=== PATIENT | female | born 1965 | race Caucasian/White ===

== ENCOUNTER 2019-07-10 09:48 | Inpatient (IN) | payer OTHER, SELFPAY ==
[2019-07-10] MEDS ORDERED: Norepinephrine 8 MG/0.9% NS 250 ML ONE (09:56)
[2019-07-10 10:09] LABS: Hemoglobin 11.6 g/dL (12.0-16.0); Mean Corpuscular Volume 91.8 fL (78.0-98.0); Red Blood Cell (RBC) Count 3.93 mill/uL (4.20-5.40); White Blood Cell (WBC) Count 15.1 thou/uL (4.8-10.8)
[2019-07-10 10:10] LABS: Mean Corpuscular Hemoglobin 29.4 pg (27.0-31.0); Mean Platelet Volume 9.6 fL (7.4-10.4); Platelet Count 178 thou/uL (130-400); RBC Distribution Width 13.1 % (11.5-14.5)
[2019-07-10 10:22] LABS: INR-International Normal Ratio 1.2; Prothrombin Time 15.3 SEC (12.0-14.7)
[2019-07-10 10:23] LABS: BHCG - Serum Negative (NEGATIVE); Pregs Control Background? CLEAR/WHITE (CLR/WHITE); Pregs Control Bar Appear? YES (CONTROL BAR)
--- NOTE | 2019-07-10 10:24 | RAD ---
EXAM: CHEST ONE VIEW HISTORY: Patient post CPR. Intubated. COMPARISON: None FINDINGS: Endotracheal tube is noted in place with tip overlying the T4 vertebral body and just above the level of the thomas. Nasogastric tube is noted in place which courses into the upper quadrant, tip is not seen. The cardiac silhouette is enlarged. Bilateral perihilar interstitial and alveolar opacities are seen with greater degree of consolidation in the right upper lobe with patchy parenchymal densities left lung base. Findings may be related to asymmetric bilateral pulmonary edema versus infe ctious process and possibly atypical infectious process. No pleural effusion is seen. Mild degenerative changes are seen in the spine. A pacing pad overlies the right upper lateral chest/axill pattie region. IMPRESSION: 1. Increased perihilar interstitial and alveolar opacities much greater in the right upper lobe. As n oted above, these findings may be related to asymmetric pulmonary edema versus infectious process and possibly atypical infectious process. 2. Cardiomegaly. 3. Endotracheal tube and nasogastric tubes in place.
[2019-07-10 10:29] LABS: Analyzer IN Cardio ER; Base Excess (BEa) -16.7 mEq/L (-2.0 to +3.0); CO2 Tension 54.3 mmHg (35.0-45.0); Carboxyhemoglobin (COHb) 0.3 gm% (0.0-3.0); Hemoglobin (Hb) 11.8 g/dL (12.0-16.0); O2 Tension (PaO2) 112.4 mmHg (80.0-100.0); Potassium - ABG Lab 3.43 mmol/L (3.70-5.30)
[2019-07-10] MEDS ORDERED: Fentanyl 100 MCG/2 ML VIAL ONE ×2 (10:32→10:47)
[2019-07-10 10:33] LABS: Puncture Site LRA; pH, Arterial 7.03 (7.35-7.45)
[2019-07-10 10:34] LABS: ALV-art Gradient 532.725 (0-20)
[2019-07-10 10:34] LABS: ALT (SGPT) 45 U/L (8-55); AST (SGOT) 53 U/L (5-34); Albumin 3.4 g/dL (3.5-5.0); Alkaline Phosphatase 127 U/L (40-110); Anion Gap 22 mmol/L (10-20); BUN (Urea Nitrogen) 16 mg/dL (9.8-20.1); Bilirubin, Total 0.2 mg/dL (0.2-1.2); Calc. Creatinine Clearance 0 mL/min (70-130); Calcium 8.3 mg/dL (7.8-10.44); Carbon Dioxide 21 mmol/L (22-29); Chloride 98 mmol/L (98-107); Estimated GFR-MDRD 45; Glucose 496 mg/dL (70-105); Lipase 83 U/L (8-78); Potassium 3.3 mmol/L (3.5-5.1); Protein, Total 6.4 g/dL (6.0-8.3); Sodium 138 mmol/L (136-145)
[2019-07-10 10:38] LABS: Band 3 % (5-11); Eosinophils 1 % (0-10); Lymphocytes 67 % (21-51); MDiff Complete? YES; Monocytes 7 % (0-10); Neutrophil 22 % (42-75); Platelet Morphology Comment Appears Adequate; RBC Morphology Normal
[2019-07-10] MEDS ORDERED: fentaNYL Citrate/PF 2,000 MCG in Sodium Chloride 0.9% 60 ML IV SCH ×2 (10:39→12:48)
[2019-07-10] MEDS ORDERED: Propofol 1,000 MG/100 ML VIAL IV ONE (10:49)
[2019-07-10 11:05] LABS: Bilirubin Negative (Negative); Blood, Urine Moderate (Negative); Glucose, Urine (Dipstick) 500 mg/dL (Negative); Leukocyte Negative (Negative); Nitrite Negative (Negative); Protein, Urine (Dipstick) > or equal to 300 mg/dL (Neg-Trace); Urobilinogen 0.2 mg/dL (Less than 2)
[2019-07-10 11:09] LABS: Clarity Cloudy (Clear)
[2019-07-10] MEDS ORDERED: levETIRAcetam 1000 MG/100 ML PREMIX BAG ONE (11:13)
[2019-07-10 11:15] LABS: Amphetamine Not Detected (NotDetected); Barbiturates Screen Not Detected (NotDetected); Benzodiazepine Screen Not Detected (NotDetected); Cocaine Metabolite Screen Not Detected (NotDetected); Medtox Control Line Valid? VALID (VALID); Medtox Reader # READER 4; Methadone Not Detected (NotDetected); Methamphetamine Not Detected (NotDetected); Opiate Screen Not Detected (NotDetected); Oxycodone Screen Not Detected (NotDetected); Phencyclidine (PCP) Not Detected (NotDetected); THC/Cannabinoid Screen Not Detected (NotDetected); Tricyclic Screen Not Detected (NotDetected)
[2019-07-10 11:17] LABS: Bacteria/HPF None Seen HPF (None Seen); Squamous Epithelial 0-3 HPF (0-3); WBC/HPF 0-3 HPF (0-3)
--- NOTE | 2019-07-10 11:35 | RAD ---
EXAM: Single view of the chest HISTORY: Respiratory failure and cardiopulmonary arrest COMPARISON: 07/10/2019 FINDINGS: Single view of the chest shows an enlarged cardiomediastinal silhouette. A left IJ central venous catheter seen with its tip in the superior vena cava. No pneumothorax is seen. The NG tube and endotracheal tube are unchanged in position. Diffuse hazy opacities are seen throughout the lung s. The bones are unremarkable. IMPRESSION: 1. Appropriate position of lines and tubes 2. Multifocal infiltrates
[2019-07-10] MEDS ORDERED: Ventilator Sedation Protocol 1 EACH FS ONE (11:44)
[2019-07-10] MEDS ORDERED: CCU Electrolyte Replacement 1 EACH FS ONE (11:44)
[2019-07-10] MEDS ORDERED: Ventilator Sedation Protocol 1 EACH FS SCH (12:00)
[2019-07-10] MEDS ORDERED: Rocuronium Bromide 10 MG/ML (10ML VIAL) ONE ×2 (12:38→12:39)
[2019-07-10] MEDS ORDERED: Potassium Chloride 40 MEQ in Sodium Chloride 0.9% 250 ML 250 ML IVPB PRN (12:48)
[2019-07-10] MEDS ORDERED: Potassium Chloride 20 MEQ TAB PO PRN (12:48)
[2019-07-10] MEDS ORDERED: Magnesium 2 GM/50 ML 2 GM in Premix Bag 1 BAG IVPB PRN (12:48)
[2019-07-10] MEDS ORDERED: Fentanyl BOLUS 250 ML IVPB PRN (12:48)
[2019-07-10] MEDS ORDERED: Magnesium Oxide 400 MG TAB PO PRN ×2 (12:48)
[2019-07-10] MEDS ORDERED: Morphine 2 MG/ML SYRINGE SLOW IVP PRN (12:48)
[2019-07-10] MEDS ORDERED: Potassium Phosphate 15 MMOL in Sodium Chloride 0.9% 250 ML 250 ML IV PRN (12:48)
[2019-07-10] MEDS ORDERED: PHOS-NAK 1 PKT PACK PO PRN ×2 (12:48)
[2019-07-10] MEDS ORDERED: Lorazepam 2 MG/ML VIAL SLOW IVP PRN (12:48)
[2019-07-10] MEDS ORDERED: Potassium Chloride 40 MEQ in Premix Bag 1 BAG IVPB PRN (12:48)
[2019-07-10] MEDS ORDERED: Potassium Phosphate 9 MMOL in Sodium Chloride 0.9% 100 ML IVPB PRN (12:48)
[2019-07-10] MEDS ORDERED: Potassium Phosphate 12 MMOL in Sodium Chloride 0.9% 250 ML 250 ML IV PRN (12:48)
[2019-07-10] MEDS ORDERED: Propofol BOLUS 1,000 MG/100 ML VIAL IV PRN (12:48)
[2019-07-10] MEDS ORDERED: CCU ELECTROLYTE REPLACEMENT PROTOCOL FS PRN (12:48)
[2019-07-10] MEDS ORDERED: DISCONTINUE PREVIOUS NARCOTIC PAIN MEDICATIONS AND BENZODIAZEPINES FS SCH (12:48)
--- NOTE | 2019-07-10 13:03 | CT ---
EXAM: CTA of the chest HISTORY: Shortness of breath COMPARISON: None TECHNIQUE: Multiple contiguous axial images were obtained a CTA of the chest with contrast per pulmon pattie embolism protocol. 3-D oblique MIP reformats and direct coronal reformats were performed. FINDINGS: HEART: Normal in size without focal cardiac abnormality. PULMONARY ARTERIES: Evaluation of the segmental and subsegmental vessels is limited secondary to stre ak artifact from the patient's sides touching the CT gantry. No emboli are seen in the central pulmonary arteries. MEDIASTINUM: No hilar or mediastinal lymphadenopathy. LUNGS: Multiple focal areas of consolidation are seen scattered throughout the lungs. This is most pr ominent in the right upper lobe. PLEURAL SPACE: No pleural effusion or pneumothorax. An endotracheal tube is seen in good position above the thomas. An NG tube is seen in the stomach. Th ere is a left IJ central venous catheter with its tip in the superior vena cava. CHEST WALL SOFT TISSUES: Unremarkable VISUALIZED OSSEOUS STRUCTURES: Degenerative changes in the spine VISUALIZED SUBDIAPHRAGMATIC STRUCTURES: Unremarkable IMPRESSION: 1. No evidence of pulmonary thromboembolism 2. Multifocal infiltrates
[2019-07-10] MEDS ORDERED: Iopamidol-370 76% 500 ML 1 ML ONE (13:30)
[2019-07-10] MEDS: Sodium Chloride 0.9% 1,000 ML IV SCH (13:37)
[2019-07-10] MEDS: Piperacillin/Tazobactam 3.375 GM in Sodium Chloride 0.9% 100 ML IVPB SCH ×3 (13:48→23:21)
[2019-07-10 13:51] LABS: Lactic Acid 5.4 mmol/L (0.5-2.2)
--- NOTE | 2019-07-10 13:51 | CT ---
CT BRAIN NONCONTRAST: DATE: 07/10/2019. TIME: 12:41 PM. HISTORY: A 54-year-old female with altered mental status, status post cardiac arrest. COMPARISON: None. FINDINGS: There is diffuse effacement of sulci globally. There is diffuse, global loss of carreon-white junction. These findings are consistent with diffuse cerebral cytotoxic edema. Ventricles are not dilated. In fact, they are slightly small. No acute intraaxial or extraaxial hemorrhage, mass effect, midline s hift, or extraaxial fluid collection. Nasogastric tube and endotracheal tube visualized partially. IMPRESSION: Evidence for global cerebral ischemic-hypoxic injury. JN Brandon POS: CET
[2019-07-10 14:14] VITALS: BMI 40.7
[2019-07-10] MEDS: HUMULIN R 100 UNITS in Sodium Chloride 0.9% 100 ML IVPB SCH ×3 (14:42→23:22)
[2019-07-10 14:50] LABS: Troponin I 1.315 ng/mL (< 0.028)
[2019-07-10] MEDS: Norepinephrine 8 MG/0.9% NS 250 ML IVPB SCH ×2 (15:52→23:23)
[2019-07-10] MEDS: Propofol 1,000 MG/100 ML VIAL IV PRN (17:38)
--- NOTE | 2019-07-10 17:42 | CON ---
DATE OF CONSULTATION: 07/10/2019 CONSULTING PHYSICIAN: Dr. Colbert from the emergency room. REASON FOR CONSULTATION: The patient is status post arrest. HISTORY OF PRESENT ILLNESS: At the current time, no family is available, so I have no history other than what is turned over to me from speaking with the nursing staff and the emergency room physician. The patient is 54-year-old, apparently she had an unwitnessed cardiac arrest. She was down for about 5 minutes before EMS arrived. I am told she was given a total of 40 minutes of CPR with several episodes, where she had spontaneous return of circulation. At the current time, she is on norepinephrine drip. She is having myoclonic jerking. PAST MEDICAL HISTORY: From her medications, it would appear that she is a type 2 diabetic, has hypertension, and has hyperlipidemia. PAST SURGICAL HISTORY: At the current time is unknown. ALLERGIES: UNKNOWN. SOCIAL HISTORY: Not known. MEDICATIONS: 1. Metformin 1000 mg b.i.d. 2. Glyburide 5 mg daily. 3. Lisinopril/hydrochlorothiazide 20/25 one daily. 4. Atorvastatin 20 mg daily. REVIEW OF SYSTEMS: Cannot be obtained secondary to the patient being unconscious. PHYSICAL EXAMINATION: VITAL SIGNS: Temperature is 95 degrees Fahrenheit, pulse 110, blood pressure 102/56 on a Levophed drip, and O2 saturation running about 90%. GENERAL: She is a short obese female, who is intubated and on a propofol drip. She has a left IJ line that has been put in by the ER staff. She has a right tibial intraosseous line that I presume was put in by paramedics. She is intubated with an endotracheal tube. HEENT: She is intubated. NECK: No adenopathy or JVD. CARDIAC: S1 and S2. Regular with a 2/6 systolic murmur. LUNGS: Coarse breath sounds bilaterally. ABDOMEN: Soft, obese, nontender, and nondistended. EXTREMITIES: No clubbing, cyanosis, or edema. NEUROLOGICAL: She has chronic myoclonic jerking. LABORATORY DATA: Urinalysis shows proteinuria and glucosuria. White blood cell count is 15.1, hematocrit 36.1, and platelet count 178 with 22% neutrophils, 3% bands, and 67% lymphocytes. INR is 1.2 and PTT 35.0. A pH is 7.03, pCO2 of 54, PO2 of 112 on SIMV rate 20, tidal volume 500, PEEP 5, pressure support 10, and FiO2 of 100%. Sodium 138, potassium 3.3, chloride 98, CO2 of 21, BUN 16, creatinine 1.2, glucose 496, lactate level is 11.7, AST 53, ALT 45, and lipase 83. Serum test is negative. Chest x-ray shows vascular congestion, ET tube in good position, has cardiomegaly. EKG, I have not seen yet, but I will look at that earliest possibility. ASSESSMENT: 1. Status post cardiac arrest, etiology uncertain. Of note, the patient has profound lactic acidosis, also has grossly elevated blood sugars indicating poor diabetic control. 2. Acute respiratory failure requiring mechanical ventilation. This problem is secondary to the underlying cardiac arrest. 3. Severe metabolic acidosis, which looks to be mostly lactic in origin. 4. Chronic kidney disease. 5. Lymphocytosis on smear. PLAN: 1. Supportive care with mechanical ventilation, therapeutic hypothermia. 2. Empiric antibiotics given probability of aspiration pneumonia given the appearance of her x-ray. 3. Check echocardiogram to rule out systolic dysfunction. 4. I would advise Cardiology consultation. 5. Agree with plan to get head CT and CT pulmonary angiogram. Given the presence of myoclonic jerking, this patient's prognosis for recovery is dismal. The above encompassed 70 minutes of critical care time. Job ID: [id number]
[2019-07-10 18:08] LABS: Troponin I 2.522 ng/mL (< 0.028)
[2019-07-10 19:59] LABS: Hemoglobin 12.8 g/dL (12.0-16.0); Mean Corpuscular Hemoglobin 29.5 pg (27.0-31.0); Mean Corpuscular Volume 89.4 fL (78.0-98.0); Mean Platelet Volume 9.5 fL (7.4-10.4); Platelet Count 269 thou/uL (130-400); RBC Distribution Width 13.1 % (11.5-14.5); Red Blood Cell (RBC) Count 4.32 mill/uL (4.20-5.40)
[2019-07-10 20:03] LABS: INR-International Normal Ratio 1.2; PTT 28.1 SEC (22.9-36.1); Prothrombin Time 15.6 SEC (12.0-14.7)
[2019-07-10 20:17] LABS: Band 20 % (5-11); Lymphocytes 3 % (21-51); MDiff Complete? YES; Metamyelocyte 1 % (0-0); Monocytes 2 % (0-10); Neutrophil 74 % (42-75); Platelet Morphology Comment Appears Adequate; RBC Morphology Normal
[2019-07-10 20:18] LABS: Anion Gap 20 mmol/L (10-20); BUN (Urea Nitrogen) 24 mg/dL (9.8-20.1); Calc. Creatinine Clearance 66 mL/min (70-130); Calcium 8.4 mg/dL (7.8-10.44); Carbon Dioxide 16 mmol/L (22-29); Chloride 106 mmol/L (98-107); Estimated GFR-MDRD 31; Glucose 409 mg/dL (70-105); Magnesium 1.4 mg/dL (1.6-2.6); Sodium 139 mmol/L (136-145)
[2019-07-10 20:20] LABS: Phosphorus 1.9 mg/dL (2.3-4.7); Potassium 2.7 mmol/L (3.5-5.1)
[2019-07-10 20:47] LABS: CKMB 48.1 ng/mL (0-6.6)
--- NOTE | 2019-07-10 21:27 | CON ---
DATE OF CONSULTATION: CRITICAL CARE NOTE TIME: 30 minutes. HISTORY OF PRESENT ILLNESS: The patient is an unfortunate 54-year-old woman, who presented after suffering a cardiac arrest. The patient has apparently a history of congestive heart failure. Her family states she was in her usual state of health when this morning she was found to be unresponsive. CPR was subsequently attempted. The patient was emergently intubated and underwent electrical cardioversion. She was transferred and at this time is intubated and unresponsive. PAST MEDICAL HISTORY: 1. Congestive heart failure. 2. Diabetes mellitus. 3. Hypertension. PAST SURGICAL HISTORY: SOCIAL HISTORY: Nonsmoker. FAMILY HISTORY: Positive family history of heart disease. ALLERGIES: NO KNOWN DRUG ALLERGIES. PHYSICAL EXAMINATION: GENERAL: Obtunded woman with a blood pressure of 135/86. NECK: No jugular venous distention. LUNGS: Clear to auscultation. HEART: Regular rate and rhythm. Normal S1 and S2. ABDOMEN: Markedly distended. EXTREMITIES: Showed trace edema. LABORATORY RESULTS: Sodium was 138, potassium 3.3, chloride 98, bicarbonate 21 , BUN 16, creatinine 1.2. Followup troponin level was 1.3. Her white blood cell count was 15.1, hemoglobin 11.6, hematocrit 36.1, and platelets 179. EKG revealed sinus tachycardia with a first-degree AV block. Nonspecific interventricular conduction delay, ST abnormality suggestive of lateral ischemia. IMPRESSION: 1. Status post cardiac arrest. 2. Diabetes mellitus. 3. Hypertension. 4. Possible anoxic brain injury. 5. Obesity. This patient has suffered a cardiac arrest. She may have been down for prolonged period of time. An echocardiogram will be obtained. Her blood pressure is stabilized. We will follow this patient with you through her hospitalization. Critical care note time is 30 minutes. Job ID: [id number] MTDD
[2019-07-10] MEDS ORDERED: Potassium Chloride 20 MEQ in Premix Bag 1 BAG IVPB SCH (21:30)
[2019-07-10] MEDS ORDERED: Magnesium 2 GM/50 ML 2 GM in Premix Bag 1 BAG IVPB SCH (21:30)
[2019-07-10] MEDS ORDERED: Potassium Phosphate 12 MMOL in Sodium Chloride 0.9% 100 ML IVPB SCH (22:00)
[2019-07-11] MEDS ORDERED: Insulin Glargine 8 UNITS in Pre-Filled Syringe 1 EACH SC SCH ×2 (01:00→21:00)
[2019-07-11 01:46] LABS: INR-International Normal Ratio 1.2; Prothrombin Time 15.4 SEC (12.0-14.7)
[2019-07-11 01:54] LABS: Band 10 % (5-11); Hemoglobin 12.8 g/dL (12.0-16.0); Lymphocytes 7 % (21-51); MDiff Complete? YES; Mean Corpuscular HGB CONC 33.6 g/dL (32.0-36.0); Mean Corpuscular Hemoglobin 29.8 pg (27.0-31.0); Mean Corpuscular Volume 88.9 fL (78.0-98.0); Mean Platelet Volume 9.3 fL (7.4-10.4); Monocytes 4 % (0-10); Neutrophil 79 % (42-75); Platelet Count 233 thou/uL (130-400); Platelet Morphology Comment Appears Adequate; RBC Distribution Width 13.1 % (11.5-14.5); RBC Morphology Normal; Red Blood Cell (RBC) Count 4.28 mill/uL (4.20-5.40); White Blood Cell (WBC) Count 24.2 thou/uL (4.8-10.8)
[2019-07-11 02:37] LABS: Anion Gap 20 mmol/L (10-20); BUN (Urea Nitrogen) 25 mg/dL (9.8-20.1); Calc. Creatinine Clearance 67 mL/min (70-130); Calcium 8.2 mg/dL (7.8-10.44); Carbon Dioxide 14 mmol/L (22-29); Chloride 108 mmol/L (98-107); Critical Call Chem Troponin I RESULT DECREASING; Estimated GFR-MDRD 32; Glucose 315 mg/dL (70-105); Magnesium 1.9 mg/dL (1.6-2.6); Phosphorus 2.5 mg/dL (2.3-4.7); Potassium 3.1 mmol/L (3.5-5.1); Sodium 139 mmol/L (136-145)
[2019-07-11 03:00] LABS: CKMB 59.5 ng/mL (0-6.6)
[2019-07-11] MEDS: HUMULIN R 100 UNITS in Sodium Chloride 0.9% 100 ML IVPB SCH ×5 (03:01→19:30)
[2019-07-11] MEDS: Propofol 1,000 MG/100 ML VIAL IV PRN (03:01)
[2019-07-11] MEDS: Sodium Chloride 0.9% 1,000 ML IV SCH ×2 (03:05→10:29)
[2019-07-11] MEDS: Piperacillin/Tazobactam 3.375 GM in Sodium Chloride 0.9% 100 ML IVPB SCH ×3 (05:15→18:07)
[2019-07-11 07:13] LABS: Actual Bicarbonate (HCO3a) 14.4 mEq/L (22-28); Base Excess (BEa) -9.8 mEq/L (-2.0 to +3.0); CO2 Tension 27.5 mmHg (35.0-45.0); Calcium, Ionized 1.12 mmol/L (1.12-1.30); Carboxyhemoglobin (COHb) 0.5 gm% (0.0-3.0); Hemoglobin (Hb) 12.7 g/dL (12.0-16.0); O2 Tension (PaO2) 155.4 mmHg (80.0-100.0); Potassium - ABG Lab 3.14 mmol/L (3.70-5.30); pH, Arterial 7.34 (7.35-7.45)
[2019-07-11 07:16] LABS: ALV-art Gradient 380.625 (0-20); Puncture Site RR
[2019-07-11 07:27] LABS: Hemoglobin 12.5 g/dL (12.0-16.0); Mean Corpuscular HGB CONC 32.8 g/dL (32.0-36.0); Mean Corpuscular Hemoglobin 29.4 pg (27.0-31.0); Mean Corpuscular Volume 89.8 fL (78.0-98.0); Mean Platelet Volume 8.9 fL (7.4-10.4); Platelet Count 221 thou/uL (130-400); RBC Distribution Width 13.4 % (11.5-14.5); Red Blood Cell (RBC) Count 4.26 mill/uL (4.20-5.40); White Blood Cell (WBC) Count 20.5 thou/uL (4.8-10.8)
[2019-07-11 07:28] LABS: INR-International Normal Ratio 1.2; PTT 28.6 SEC (22.9-36.1); Prothrombin Time 15.5 SEC (12.0-14.7)
--- NOTE | 2019-07-11 07:29 | HP ---
CHIEF COMPLAINT: Cardiac arrest. HISTORY OF PRESENT ILLNESS: Ms. Nieto is a 54-year-old female with past medical history of hypertension, diabetes, heart failure, was found to be unresponsive at home. 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 She worked last night and this morning, she was in communication with her daughters around 6:30, but later her found her gasping for air just before 9:00 and he tried to wake up point and she was unresponsive. He called the EMS. EMS found the patient unresponsive, gasping for air, and a few minutes later, she was in cardiac arrest and CPR was started by the EMS. The patient was also shocked 3 times en route to the hospital. She was started on lidocaine drip. She received two rounds of epi by the EMS. In the ER, the patient was continued on CPR and shocked as well, so she had a total of 40 minutes of CPR and she had less spontaneous return to circulation here few times. Later, she was intubated and put on ventilator. She was on norepinephrine drip. The patient was also noticed to have myoclonic jerking. The patient is admitted to ICU for further management. The patient did not complain of any chest pain or shortness of breath prior to this event. According to the family, the patient takes her medications regularly. The patient also had elevated lactic acid and elevated troponin as well. PAST MEDICAL HISTORY: 1. Diabetes mellitus. 2. Hypertension. 3. Hyperlipidemia. 4. History of CHF. PAST SURGICAL HISTORY: Unknown. CURRENT MEDICATIONS: The patient is on: 1. Metformin 1000 b.i.d. 2. Glimepiride 8 mg daily. 3. Atorvastatin 20 mg daily. 4. Lisinopril hydrochlorothiazide one tablet daily, . ALLERGIES: NKDA. FAMILY HISTORY: Nothing contributory. SOCIAL HISTORY: The patient lives with her family. 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 Used to smoke many years ago, quit smoking 20 years ago. No history of alcohol or drug abuse. REVIEW OF SYSTEMS: Unable to obtain because of the patient's current condition. PHYSICAL EXAMINATION: GENERAL: The patient is unresponsive. VITAL SIGNS: Temperature hypothermic, temp max 95, pulse 85, blood pressure 120/ 60. HEENT: Head is normocephalic, atraumatic. Pupils not reacting to light, but not dilated. LUNGS: Bilateral air entry present. No rales, no rhonchi. HEART: S1 and S2, regular. ABDOMEN: Soft. No distention. No tenderness. No organomegaly. Bowel sounds present. CENTRAL NERVOUS SYSTEM: The patient is unresponsive. DIAGNOSTIC STUDIES: LABORATORY RESULTS: CBC shows WBC 15, hemoglobin 11, hematocrit 36, platelets 178. Prothrombin time 15, INR 1.2. ABG showed pH 7.03, pCO2 54, pCO2 112, saturation 95%, panel; sodium 138, potassium 3.3 chloride 98, CO2 21, creatinine 1.24, glucose 496. Lactic acid 11.7. Urine toxicology negative. Troponin I less than 0.010. Chest x-ray shows multiple infiltrates. CT angio chest, no evidence of pulmonary embolism. CT of the brain suggestive of anoxic brain injury. Initial EKG showed sinus tachycardia, T-wave inversions in aVL, but the repeat EKG done just now revealed ST elevation in lead 1 and aVL, possibly lateral ischemia. ASSESSMENT: 1. Status post cardiac arrest. 2. Acute respiratory failure secondary to #1. 3. Acute myocardial infarction. 4. Hypotension. 5. Hypothermia. 6. Metabolic encephalopathy. 7. Unresponsive. 8. History of diabetes. 9. Hyperlipidemia. PLAN: 1. CCU monitoring. 2. Ventilator support. 3. Electrolyte protocol. 4. Sedation protocol. 5. Troponin I q.6 hours x2. 6. Zosyn 3.375 g IV piggyback q.6 hours. 7. Tube feeding. 8. Echocardiogram. Job ID: [id number] MTDD
[2019-07-11 07:48] LABS: Anion Gap 17 mmol/L (10-20); BUN (Urea Nitrogen) 27 mg/dL (9.8-20.1); Calc. Creatinine Clearance 68 mL/min (70-130); Calcium 8.2 mg/dL (7.8-10.44); Carbon Dioxide 16 mmol/L (22-29); Chloride 108 mmol/L (98-107); Estimated GFR-MDRD 32; Glucose 285 mg/dL (70-105); Magnesium 1.7 mg/dL (1.6-2.6); Phosphorus 2.8 mg/dL (2.3-4.7); Potassium 3.2 mmol/L (3.5-5.1); Sodium 138 mmol/L (136-145)
[2019-07-11 07:55] LABS: Critical Call Chem Troponin I RESULT DECREASING
--- NOTE | 2019-07-11 08:04 | RAD ---
Portable frontal chest radiograph: 07/11/2019 COMPARISON: 07/10/2019 HISTORY: Pneumonia FINDINGS: Supine imaging is provided, limiting assessment for pleural fluid and pneumothorax. There i s an endotracheal tube in place, terminating approximately 2 cm proximal to the thomas. Stable nasogastric tube and left-sided vascular catheter. Stable pulmonary vascular congestion with perihila r interstitial and alveolar opacity. Stable prominence of the cardiac silhouette. Hazy airspace disease again noted in the left base. Aeration within the right upper lobe has improved. IMPRESSION: Lines and tubes as detailed above. Improved aeration in the right upper lobe. Pulmonary v ascular congestion with perihilar and left basilar interstitial/alveolar opacity may be on the basis of edema or infectious pneumonitis.
[2019-07-11 08:15] LABS: CKMB 57.8 ng/mL (0-6.6); Critical Call CKMB RESULT DECREASING
[2019-07-11 08:20] LABS: Band 11 % (5-11); Eosinophils 1 % (0-10); Lymphocytes 12 % (21-51); MDiff Complete? YES; Monocytes 2 % (0-10); Neutrophil 74 % (42-75); Platelet Morphology Comment Appears Adequate; RBC Morphology Normal
--- NOTE | 2019-07-11 08:57 | PRG ---
DATE OF SERVICE: 07/11/2019 35 minutes of critical care time. SUBJECTIVE: The patient had an episode of bradycardia early this morning followed by tachycardia. During that episode her pupils became 8 mm bilaterally, unreactive. PHYSICAL EXAMINATION: VITAL SIGNS: Currently temperature 91.4, pulse 122, blood pressure 171/118. 24-hour intake 2878, output 960. HEENT: Pupils are 7 mm, unreactive to light. Sclerae anicteric. Oropharynx, ET tube in place. NECK: No adenopathy or JVD. CHEST: Clear to auscultation. CARDIAC: S1-S2 regular. ABDOMEN: Soft. EXTREMITIES: No edema. NEUROLOGICAL: She does not withdraw to pain. Her pupils are fixed and dilated to light. She has no spontaneous respirations on the ventilator. LABORATORY DATA: Sodium 138, potassium 3.2, chloride 108, CO2 of 16, BUN 27, creatinine 1.6, and glucose 285. PH 7.34, pCO2 27, PO2 155 on SIMV rate 24, tidal volume 500, PEEP 5, pressure support 10, FiO2 80%. White blood cell count 20.5, hematocrit 38.2, and platelet count 221. ASSESSMENT: 1. Status post prolonged cardiopulmonary arrest. 2. Probable clinical brain , although the patient has not been rewarming yet, so that cannot be said with absolution. PLAN: 1. Begin rewarming. 2. Cerebral brain flow scan once she is warm. 3. Hold sedation. 4. I spoke with family yesterday regarding poor prognosis. 5. Placed ventilator on assist-control mode. Job ID: [id number]
[2019-07-11] MEDS ORDERED: FLU VACC QS2019-20(6MOS UP)/PF 60 MCG/0.5 ML SYRINGE IM ONE (09:00)
[2019-07-11] MEDS ORDERED: Pantoprazole 40 MG VIAL IVP SCH (09:00)
[2019-07-11 13:08] LABS: INR-International Normal Ratio 1.2; PTT 30.8 SEC (22.9-36.1); Prothrombin Time 15.6 SEC (12.0-14.7)
[2019-07-11 13:17] LABS: Hemoglobin 11.8 g/dL (12.0-16.0); Mean Corpuscular HGB CONC 33.6 g/dL (32.0-36.0); Mean Corpuscular Hemoglobin 29.6 pg (27.0-31.0); Mean Corpuscular Volume 88.3 fL (78.0-98.0); Platelet Count 216 thou/uL (130-400); RBC Distribution Width 13.1 % (11.5-14.5); Red Blood Cell (RBC) Count 3.97 mill/uL (4.20-5.40); White Blood Cell (WBC) Count 19.1 thou/uL (4.8-10.8)
[2019-07-11 13:25] LABS: Anion Gap 15 mmol/L (10-20); BUN (Urea Nitrogen) 25 mg/dL (9.8-20.1); Calc. Creatinine Clearance 70 mL/min (70-130); Calcium 8.4 mg/dL (7.8-10.44); Carbon Dioxide 19 mmol/L (22-29); Chloride 110 mmol/L (98-107); Estimated GFR-MDRD 33; Glucose 199 mg/dL (70-105); Potassium 3.5 mmol/L (3.5-5.1); Sodium 140 mmol/L (136-145)
[2019-07-11 13:41] LABS: Band 9 % (5-11); Lymphocytes 6 % (21-51); MDiff Complete? YES; Monocytes 2 % (0-10); Neutrophil 83 % (42-75); Platelet Morphology Comment Appears Adequate; Polychromasia SLIGHT = 2-3 cells (100X) (0-2/hpf)
[2019-07-11 13:42] LABS: Critical Call Chem Troponin I RESULT DECREASING
[2019-07-11 13:43] LABS: Magnesium 1.7 mg/dL (1.6-2.6); Phosphorus 1.6 mg/dL (2.3-4.7)
[2019-07-11 14:02] LABS: CKMB 47.5 ng/mL (0-6.6); Critical Call CKMB RESULT DECREASING
[2019-07-11 14:13] VITALS: TEMP 36.7
[2019-07-11] MEDS ORDERED: Potassium Phosphate 40 MMOL in Sodium Chloride 0.9% 500 ML IVPB SCH (15:00)
[2019-07-11] MEDS: Norepinephrine 8 MG/0.9% NS 250 ML IVPB SCH (15:02)
--- NOTE | 2019-07-11 15:12 | PDOC.PALCO ---
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 He found her down at home "gasping" for air and non responsive, he called EMS. EMS initiated CPR and transported to the hospital. CPR was estimated to last 40 minutes. Patient had been intubated, and placed on a ventilator and admitted to CCU for medical management. Family reports the patient had not reported any chest pain or discomfort, and is complaint with medications related to chronic illnesses. - Pertinent PMH DM, HTN, HDL, CHF - Social History Smoking Status: Former smoker Smoking: quit greater than 1 year (quit smoking greater than 20 years ago) Alcohol Use: none Drug Use History: none Living Situation: - Medications MAR Reviewed: Yes - Allergies Allergies/Adverse Reactions: Allergies Allergy/AdvReac Type Severity Reaction Status Date / Time No Known Allergies Allergy Unverified 07/10/19 10:36 - Subjective Intubated, non responsive, sedation stopped. - ROS Non Response: due to endotracheal tube, due to mental status - Objective Vital Signs: Vital Signs - Most Recent Temp Pulse Resp BP Pulse Ox 36.7 F L 106 H 24 H 100/68 100 07/11/19 14:13 07/11/19 14:35 07/11/19 13:59 07/11/19 12:56 07/11/19 08:00 Palliative Performance Scale: 10 - Physical Exam Constitutional: encephalitic, ill appearing HEENT: moist MMs Deviation from normal: Pupils fixed Respiratory: no wheezing Deviation from normal: Intubated Cardiovascular: no significant murmur, RRR Gastrointestinal: non-tender, positive bowel sounds Genitourinary: garcia catheter Musculoskeletal: no cyanosis, edema present Deviation from normal: no purposeful movment or response to gentle stimuli Skin: no lesions, no rash Deviation from normal: non responsive - Problem List (1) Palliative care encounter Code(s): Z51.5 - ENCOUNTER FOR PALLIATIVE CARE Current Visit: Yes Status: Acute (2) History of cardiac arrest Code(s): Z86.74 - PERSONAL HISTORY OF SUDDEN CARDIAC ARREST Current Visit: Yes Status: Acute (3) Respiratory failure requiring intubation Code(s): J96.90 - RESPIRATORY FAILURE, UNSP, UNSP W HYPOXIA OR HYPERCAPNIA Current Visit: Yes Status: Acute (4) Metabolic encephalopathy Code(s): G93.41 - METABOLIC ENCEPHALOPATHY Current Visit: Yes Status: Acute (5) Chronic kidney disease Code(s): N18.9 - CHRONIC KIDNEY DISEASE, UNSPECIFIED Current Visit: Yes Status: Acute - Plan/Recommendations Plan: Palliative Care initiated contact with family. Awaiting patient to be warmed and have cerebral flow done. Family aware of grave nature of patient and that prognosis is poor in relation to meaningful recovery. Continue with family support and discussion in relation to poor outcomes related to acute event requiring CPR. Spiritual care also seeing patient and involved in support of family. Communicated with Father Henok. Please also refer to Palliative Care RN notes in note section of chart. *Will further support patient as they are faced with complex decisions [50] minutes spent on this encounter with >50% of the time in counseling and coordination of care. Thank you for this very appropriate consult.
--- NOTE | 2019-07-11 16:09 | NM ---
NUCLEAR MEDICINE BRAIN EXAMINATION/CEREBRAL BLOOD FLOW STUDY HISTORY: Clinical brain COMPARISON: None TECHNIQUE: A nuclear medicine cerebral blood flow study was performed after administration of 31.8mCi of technetium 99m HMPAO. Angiographic and delayed phase images were performed. FINDINGS: There is lack of intracranial flow on the angiographic and delayed phase images. IMPRESSION: Findings are consistent with brain
[2019-07-11 16:53] LABS: Anion Gap 14 mmol/L (10-20); BUN (Urea Nitrogen) 24 mg/dL (9.8-20.1); Calc. Creatinine Clearance 68 mL/min (70-130); Calcium 8.7 mg/dL (7.8-10.44); Carbon Dioxide 21 mmol/L (22-29); Chloride 112 mmol/L (98-107); Estimated GFR-MDRD 32; Glucose 130 mg/dL (70-105); Potassium 3.9 mmol/L (3.5-5.1); Sodium 143 mmol/L (136-145)
[2019-07-11 18:49] VITALS: BP 120/78
--- NOTE | 2019-07-12 12:34 | DIS ---
DATE OF ADMISSION: 07/10/2019 DATE OF DISCHARGE: 07/11/2019 SUMMARY DATE OF : July 11, 2019. ADMITTING DIAGNOSES: 1. Cardiac arrest. 2. Acute respiratory failure. 3. Hypotension. 4. Hypothermia. 5. The patient was unresponsive. 6. Possible anoxic brain injury. 7. History of diabetes mellitus. FINAL DIAGNOSES: 1. Status post cardiac arrest. 2. Anoxic brain injury. 3. Acute respiratory failure. 4. Hypotension. 5. Unresponsive. 6. Severe decreased LV function with ejection fraction of 10% to 15% on echo done this admission. BRIEF SUMMARY OF HOSPITAL COURSE: Ms. Nieto was a 54-year-old female admitted because of cardiac arrest. The patient was found to be unresponsive at home. EMS was called, was started on CPR, then had direct cardioversion and the patient's blood pressure and pulse came back, but the patient remained unresponsive. She was intubated and was put on ventilator. Initially, she was hypotensive. She was started on Levophed infusion and supportive care. The patient was seen by Pulmonary in ICU, seen by Dr. Ruff. He felt she had cardiac arrest due to probably prolonged time she was down, possible anoxic brain injury as well. The patient was continued on treatment. Her blood pressure went up in the morning and her Levophed was discontinued, but the CT scan of the brain showed possible anoxic injury. Brain flow nuclear medicine study was done and it confirmed brain . Her condition was discussed with the family. They agreed for organ donation as well. An echocardiogram was done prior to that, it showed decreased LV function with ejection fraction of 10% to 15%. The patient was seen by Dr. Woo for Cardiology. He felt the patient had cardiac arrest with prolonged down time, possible anoxic brain injury, so the patient was pronounced on the 11 of July. Family was at bedside. Job ID: [id number]
--- NOTE | 2019-07-14 14:24 | EKG ---
Test Reason : Blood Pressure : / mmHG Vent. Rate : 112 BPM Atrial Rate : 112 BPM P-R Int : 000 ms QRS Dur : 124 ms QT Int : 346 ms P-R-T Axes : 015 -61 132 degrees QTc Int : 472 ms Sinus tachycardia Left axis deviation Non-specific intra-ventricular conduction delay Abnormal ECG Confirmed by HENNY JALLOH DO ([id number]), marketing editor PADILLA ROTH ([id number]) on 07/14/2019 2:24:01 PM Referred By: Confirmed By:HENNY JALLOH DO
--- NOTE | 2019-07-16 19:00 | PQF ---
[employer] Nonprofit Manager Crystal Reports Dorie VincentAviSANDRA VENKAT R MD [id number] CLINICAL DOCUMENTATION CLARIFICATION FORM: POST DISCHARGE Addendum to original discharge summary date: ____ Late entry note date: __ DATE: 07/16/18 ATTN: Emmanuel Vann Please exercise your independent, professional judgment in responding to the clarification form. Clinical indicators are provided on the bottom of this form for your review Please check appropriate box(es): [ ] Sepsis due to: (Pna, UTI, gangrenous gall bladder, etc.) [ ] SIRS due to non-infectious process (please specify etiology) [ ] with organ dysfunction [ ] without organ dysfunction [ ] Severe sepsis with acute organ dysfunction of: [ ] Localized infection without sepsis [ y ] Other diagnosis Please specify heart failure with ventricular fibrillation [ ] Unable to determine In addition, please specify: Present on Admission (POA): [ y Yes [ ] No [ ] Unable to determine For continuity of documentation, please document condition throughout progress notes and discharge summary. Thank You. CLINICAL INDICATORS - SIGNS / SYMPTOMS / LABS Chest X ray 07/10- Increased perihilar interstitial and alveolar opacities much greater in the right upper lobe Chest X ray 07/10- Multifocal infiltrates Consult 07/10 dr. Ruff pg.2- patient has profound lactic acidosis, Consult pg.2 07/10- Sever metabolic acidosis which mostly lactic in origin Consult 07/10 pg.2- Empiric antibiotics given probability of aspiration pneumonia DS pg.1- "Anoxic brain injury" RISK FACTORS Cardiac arrest- Consult 07/10 pg.1 Acute respiratory failure- Consult pg.2 DM- Consult pg.1 CHF- Consult pg.1 Hypertension- Consult pg.1 Metabolic encephalopathy- H and P pg.2 Acute myocardial infarction- H and P pg.2 TREATMENTS: Pulmonary Consult- Dr. Ruff 07/10 Chest X ray 07/10 40 mins of CPR- Consult Dr. Ruff 07/10 Mechanical Ventilation- consult pg.2 Empiric antibiotics- Consult pg.2 On norepinephrine drip- H and P pg.1 CCU monitoring- H and P pg.3 IV Fluids- MAR (This form is maintained as a part of the permanent medical record) 2015 [employer] All Rights Reserved [email or web address] [not provided] MTDD
--- NOTE | 2019-07-16 19:03 | PQF ---
SANDRA CHAMBERS VENKAT R MD [id number] CLINICAL DOCUMENTATION CLARIFICATION FORM: POST DISCHARGE Addendum to original discharge summary date: ____ Late entry note date: __ DATE: 07/16/18 ATTN: Emmanuel Vann Please exercise your independent, professional judgment in responding to the clarification form. Clinical indicators are provided on the bottom of this form for your review Please check appropriate box(s): [ ] Aspiration Pneumonia [ ] No Pneumonia [ ] Pneumonia of unknown etiology [ ] Other diagnosis please specify [ y ] Unable to determine In addition, please specify: Present on Admission (POA): [ y ] Yes [ ] No [ ] Unable to determine For continuity of documentation, please document condition throughout progress notes and discharge summary. Thank You. CLINICAL INDICATORS - SIGNS / SYMPTOMS / LABS Chest X ray 07/10- Increased perihilar interstitial and alveolar opacities much greater in the right upper lobe Chest X ray 07/10- Multifocal infiltrates Consult 07/10 dr. Ruff pg.2- patient has profound lactic acidosis, Consult pg.2 07/10- Sever metabolic acidosis which mostly lactic in origin Consult 07/10 pg.2- Empiric antibiotics given probability of aspiration pneumonia RISK FACTORS Cardiac arrest- Consult 07/10 pg.1 Acute respiratory failure- Consult pg.2 DM- Consult pg.1 CHF- Consult pg.1 Hypertension- Consult pg.1 Metabolic encephalopathy- H and P pg.2 Acute myocardial infarction- H and P pg.2 TREATMENTS: Pulmonary Consult- Dr. Ruff 07/10 Chest X ray 07/10 40 mins of CPR- Consult Dr. Ruff 07/10 Mechanical Ventilation- consult pg.2 Empiric antibiotics- Consult pg.2 On norepinephrine drip- H and P pg.1 CCU monitoring- H and P pg.3 (This form is maintained as a part of the permanent medical record) 2014 [employer] All Rights Reserved [email or web address] Data [not provided] MTDD
--- NOTE | 2019-07-16 19:12 | PQF ---
[employer] Certified Nurse Crystal Reports [employer] SANDRA La JENNIFER VANN MD [id number] CLINICAL DOCUMENTATION CLARIFICATION FORM: POST DISCHARGE Addendum to original discharge summary date: ____ Late entry note date: __ DATE: 07/16/18 ATTN:Jennifer Vann Please exercise your independent, professional judgment in responding to the clarification form. Clinical indicators are provided on the bottom of this form for your review Can you please further clarify the etiology of cardiac arrest? Please check appropriate box(s): [ ] Acute hypoxic respiratory failure [ y ] Anoxic brain injury [ ] Sepsis [ ] Other diagnosis please specify [ ] Unable to determine In addition, please specify: Present on Admission (POA): [ y ] Yes [ ] No [ ] Unable to determine For continuity of documentation, please document condition throughout progress notes and discharge summary. Thank You. CLINICAL INDICATORS - SIGNS / SYMPTOMS / LABS DS pg.1- "the patient found to be unresponsive at home" DS pg.1- "initially she was hypotensive. She was started on Levophed infusion" DS pg.1- He felt she had cardiac arrest due to probably prolonged time she was down, possible anoxic brain injury as well Chest X ray 07/10- Increased perihilar interstitial and alveolar opacities much greater in the right upper lobe Chest X ray 07/10- Multifocal infiltrates Consult 07/10 dr. Ruff pg.2- patient has profound lactic acidosis, Consult pg.2 07/10- Sever metabolic acidosis which mostly lactic in origin Consult 07/10 pg.2- Empiric antibiotics given probability of aspiration pneumonia RISK FACTORS Acute respiratory failure- Consult pg.2 DM- Consult pg.1 CHF- Consult pg.1 Hypertension- Consult pg.1 Metabolic encephalopathy- H and P pg.2 Acute myocardial infarction- H and P pg.2 TREATMENTS: Pulmonary Consult- Dr. Ruff 07/10 Chest X ray 07/10 40 mins of CPR- Consult Dr. Ruff 07/10 Mechanical Ventilation- Consult pg.2 Empiric antibiotics- Consult pg.2 On norepinephrine drip- H and P pg.1 CCU monitoring- H and P pg.3 IV fluids- MAR (This form is maintained as a part of the permanent medical record) 2014 [employer] All Rights Reserved Jad [email or web address] [not provided] MTDD
--- NOTE | 2019-07-17 09:35 | EKG ---
Test Reason : STAT Blood Pressure : / mmHG Vent. Rate : 096 BPM Atrial Rate : 096 BPM P-R Int : 220 ms QRS Dur : 112 ms QT Int : 384 ms P-R-T Axes : 071 -55 085 degrees QTc Int : 485 ms Sinus rhythm with 1st degree A-V block Left axis deviation Incomplete left bundle branch block Prolonged QT Abnormal ECG When compared with ECG of 28-JAN-2007 00:09, MI interval has increased Incomplete left bundle branch block is now Present Confirmed by SIDNEY CHING (2) on 07/17/2019 9:35:15 AM Referred By: JAHAIRA Confirmed By:SIDNEY CHING
--- NOTE | 2019-07-17 09:36 | EKG ---
Test Reason : EKG CHANGES Blood Pressure : / mmHG Vent. Rate : 085 BPM Atrial Rate : 085 BPM P-R Int : 162 ms QRS Dur : 176 ms QT Int : 500 ms P-R-T Axes : 056 -72 046 degrees QTc Int : 595 ms Normal sinus rhythm Left axis deviation Non-specific intra-ventricular conduction block Lateral infarct , age undetermined Inferior infarct , age undetermined Abnormal ECG When compared with ECG of 10-JUL-2019 15:23, (Unconfirmed) NV interval has decreased Non-specific intra-ventricular conduction block has replaced Incomplete left bundle branch block Lateral infarct is now Present Confirmed by SIDNEY CHING (2) on 07/17/2019 9:35:42 AM Referred By: JAHAIRA Confirmed By:SIDNEY CHING
--- NOTE | 2019-07-17 09:38 | EKG ---
Test Reason : STAT Blood Pressure : / mmHG Vent. Rate : 060 BPM Atrial Rate : 060 BPM P-R Int : 220 ms QRS Dur : 124 ms QT Int : 674 ms P-R-T Axes : 059 -39 100 degrees QTc Int : 674 ms Sinus rhythm with 1st degree A-V block Left axis deviation Non-specific intra-ventricular conduction delay Abnormal ECG When compared with ECG of 10-JUL-2019 16:42, (Unconfirmed) NE interval has increased Questionable change in QRS duration Criteria for Lateral infarct are no longer Present Criteria for Inferior infarct are no longer Present Confirmed by SIDNEY CHING (2) on 07/17/2019 9:38:31 AM Referred By: JESUS Confirmed By:SIDNEY CHING
--- NOTE | 2019-07-17 09:41 | EKG ---
Test Reason : Blood Pressure : / mmHG Vent. Rate : 131 BPM Atrial Rate : 068 BPM P-R Int : 000 ms QRS Dur : 124 ms QT Int : 382 ms P-R-T Axes : 000 -43 070 degrees QTc Int : 564 ms Wide QRS tachycardia Left axis deviation Non-specific intra-ventricular conduction delay Abnormal ECG When compared with ECG of 11-JUL-2019 03:24, (Unconfirmed) Wide QRS tachycardia has replaced Sinus rhythm Vent. rate has increased BY 71 BPM Confirmed by SIDNEY CHING (2) on 07/17/2019 9:40:55 AM Referred By: JAHAIRA Confirmed By:SIDNEY CHING
--- NOTE | 2019-07-20 19:37 | PQF ---
S[employer] Log Handler Crystal Reports Winform Viewer SANDRA CHAMBERS VENKAT R MD [id number] CLINICAL DOCUMENTATION CLARIFICATION FORM: POST DISCHARGE Addendum to original discharge summary date: ____ Late entry note date: __ DATE: 07/20/19 ATTN:Emmanuel Vann Please exercise your independent, professional judgment in responding to the clarification form. Clinical indicators are provided on the bottom of this form for your review Can you please further clarify the type and acuity of CHF? Please check appropriate box(s): HEART FAILURE: A. TYPE: [ y ] Systolic / HFrEF [ ] Diastolic / HFpEF [ ] Combined Systolic / Diastolic B. ACUITY [ ] Acute [ ] Acute on Chronic [ ] Chronic [ ] Other diagnosis [ ] Unable to determine In addition, please specify: Present on Admission (POA): [ y ] Yes [ ] No [ ] Unable to determine For continuity of documentation, please document condition throughout progress notes and discharge summary. Thank You. CLINICAL INDICATORS - SIGNS / SYMPTOMS / LABS H and P pg.1- Cardiac arrest H and P pg.1- History of CHF H and P pg.2- acute myocardial infarction DS pg.1- severe decreased LV function with ejection fraction of 10-15% on echo Consult (Dr. Baldwin)- "Check ECG to rule out systolic dysfunction, advise cardiology consult" RISKS: DM- H and P pg.1 Hypertension- H and P pg.1 hyperlipidemia- H and P pg.1 acute respiratory failure- H and P pg.2 Metabolic encephalopathy- H and P pg.2 TREATMENTS: Echocardiogram 07/10 Chest X ray 07/10 Cardiology Consult 07/10 Intubated and underwent electrical cardioversion- Consult Dr. Woo pg.1 Oxygen supplementation (This form is maintained as a part of the permanent medical record) 2014 [employer]. All Rights Reserved Jad IRVIN
--- NOTE | 2019-07-20 19:42 | PQF ---
[employer] Lens Generator Crystal Reports Winform Viewer SANDRA CHAMBERS VENKAT R MD [id number] CLINICAL DOCUMENTATION CLARIFICATION FORM: POST DISCHARGE Addendum to original discharge summary date: ____ Late entry note date: __ DATE: 07/20/19 ATTN: Emmanuel Vann Please exercise your independent, professional judgment in responding to the clarification form. Clinical indicators are provided on the bottom of this form for your review Can you please further clarify the stage of CKD based on the clinical indicators below? Please check appropriate box(s): [ y ] Acute on Chronic Renal Failure please specify Stage of CKD 3 (see below) [ ] CKD without ARF/MISSY please specify Stage of CKD [ ] ESRD [ ] Other diagnosis [ ] Unable to determine In addition, please specify: Present on Admission (POA): [y ] Yes [ ] No [ ] Unable to determine National Kidney Foundation Guidelines for CKD Staging Stage I Kidney damage with normal or increased GFRGFR > 90 Stage IIKidney damage with mildly decreased GFRGFR 60-89 Stage III Kidney damage with moderately decreased GFRGFR 30-59 Stage IVKidney damage with severely decreased GFRGFR 16-29 Stage VKidney failureGFR<15 ESRDEnd Stage Renal Disease On dialysis Acute Renal Failure/Acute Kidney Failure defined as: Increases in SCr by (>) 0.3 mg/dl within 48 hours OR- Increases in SCr by (>) 1.5 times baseline, known or presumed to have occurred within the prior 7 days OR- Urine volume < 0.5 ml/kg/hour for 6 hours (KDIGO supplement 2012 for RIFLE/CRISTAL criteria) For continuity of documentation, please document condition throughout progress notes and discharge summary. Thank You. CLINICAL INDICATORS - SIGNS / SYMPTOMS / LABS Consult 05/10 Dr. Ruff pg.1- Chronic kidney disease H and P pg.1- Cardiac arrest H and P pg.1- History of CHF H and P pg.2- acute myocardial infarction Laboratory: BUN 16, 24H,25H,27H,25H Laboratory: Creatinine 1.24H, 1.70H, 1/68H, 1.66H Laboratory: GFR 45, 31, 32, 32, 33, 32 RISK FACTORS DM- H and P pg.1 Hypertension- H and P pg.1 hyperlipidemia- H and P pg.1 acute respiratory failure- H and P pg.2 Metabolic encephalopathy- H and P pg.2 Former smoker- - Palliative consult TREATMENTS: IV fluids- MAR BUN and Creatinine monitoring- MAR Palliative Consult- Dr. Graff Correction of electrolytes / acidosis (This form is maintained as a part of the permanent medical record) 2014 [employer]. All Rights Reserved [email or web address] [email or web address]
== END 2019-07-11 16:30 | disposition expired | DRG 91 ==
LOC: ERS 09:48 → CCU 12:54
PROVIDERS: ADMIT Internal Medicine; ATTEND Emergency Medicine
PROC: 5A1935Z Respiratory Ventilation, Less than 24 Consecutive Hours (ICD-10-PCS; principal; 2019-07-10)
PROC: 02HV33Z Insertion of Infusion Device into Superior Vena Cava, Percutaneous Approach (ICD-10-PCS; 2019-07-10)
PROC: 0BH17EZ Insertion of Endotracheal Airway into Trachea, Via Natural or Artificial Opening (ICD-10-PCS; 2019-07-10)
PROC: 3E033XZ Introduction of Vasopressor into Peripheral Vein, Percutaneous Approach (ICD-10-PCS; 2019-07-10)
PROC: 5A12012 Performance of Cardiac Output, Single, Manual (ICD-10-PCS; 2019-07-10)
PROC: 5A2204Z Restoration of Cardiac Rhythm, Single (ICD-10-PCS; 2019-07-10)
DX: G93.1 Anoxic brain damage, not elsewhere classified (principal); J96.00 Acute respiratory failure, unspecified whether with hypoxia or hypercapnia; I21.9 Acute myocardial infarction, unspecified; G93.41 Metabolic encephalopathy; R40.2312 Coma scale, best motor response, none, at arrival to emergency department; R40.2112 Coma scale, eyes open, never, at arrival to emergency department; R40.2212 Coma scale, best verbal response, none, at arrival to emergency department; E87.2 Acidosis; I13.0 Hypertensive heart and chronic kidney disease with heart failure and stage 1 through stage 4 chronic kidney disease, or unspecified chronic kidney disease; Z68.41 Body mass index [BMI] 40.0-44.9, adult; N17.9 Acute kidney failure, unspecified; I50.22 Chronic systolic (congestive) heart failure; Z51.5 Encounter for palliative care; I46.2 Cardiac arrest due to underlying cardiac condition; E78.5 Hyperlipidemia, unspecified; E11.22 Type 2 diabetes mellitus with diabetic chronic kidney disease; D72.820 Lymphocytosis (symptomatic); I49.01 Ventricular fibrillation; E66.9 Obesity, unspecified; Z87.891 Personal history of nicotine dependence; Z79.84 Long term (current) use of oral hypoglycemic drugs; Z79.899 Other long term (current) drug therapy; I44.0 Atrioventricular block, first degree; E11.65 Type 2 diabetes mellitus with hyperglycemia; N18.3 Chronic kidney disease, stage 3 (moderate)
CPT/HCPCS: 31500; 36415; 36416; 36556; 51702; 70450; 71045; 71275; 78610; 80053; 80306; 81003; 81015; 82010; 82550; 82553; 82805; 83605; 83690; 83735; 84100; 84484; 84703; 85025; 85610; 85730; 87040; 87086; 92950; 93005; 93010; 93306; 93451; 94002; 94003; 96365; 96366; 96367; 96368; 96375; 96376; A9521; C9113; J1815; J1953; J1956; J2543; J2704; J3010; J3475; J3480; J3490; J7050; Q9967

== ENCOUNTER 2019-07-11 20:04 | Day surgery (SDC) | payer OTHER ==
[2019-07-11] MEDS ORDERED: Sodium Chloride 0.9% 1,000 ML IV SCH (21:45)
[2019-07-11] MEDS ORDERED: Labetalol HCl 100 MG/20 ML VIAL SLOW IVP SCH (21:45)
[2019-07-11] MEDS ORDERED: Naloxone HCl 2 mg/2 ml Syringe IV SCH (21:45)
[2019-07-11] MEDS ORDERED: Mannitol 12.5 GM/50 ML IV SCH (21:45)
[2019-07-11] MEDS ORDERED: Albuterol Sulfate 2.5 mg/3 ml Neb NEB PRN (21:45)
[2019-07-11] MEDS ORDERED: SODIUM CHLORIDE 0.9% IVPB SCH (22:00)
[2019-07-11] MEDS ORDERED: METHYLPREDNISOLONE SOD SUCC IVPB SCH (22:00)
[2019-07-11 22:02] LABS: Actual Bicarbonate (HCO3a) 20.5 mEq/L (22-28); Base Excess (BEa) -1.6 mEq/L (-2.0 to +3.0); CO2 Tension 27.2 mmHg (35.0-45.0); Calcium, Ionized 1.08 mmol/L (1.12-1.30); Carboxyhemoglobin (COHb) 1.1 gm% (0.0-3.0); Hemoglobin (Hb) 12.3 g/dL (12.0-16.0); O2 Tension (PaO2) 127.1 mmHg (80.0-100.0)
[2019-07-11 22:08] LABS: Puncture Site LINE
--- NOTE | 2019-07-11 22:08 | RAD ---
Chest one view HISTORY: Chest pain. COMPARISON: 07/11/2019. FINDINGS: Cardiac silhouette is magnified and enlarged. Pulmonary vasculature remains engorged with m ild bilateral perihilar infiltrates similar in appearance to the prior study. Mediastinum is midline. Lines and tubes appear unchanged in position. No evidence of pneumothorax. IMPRESSION: Stable radiographic appearance of the chest.
[2019-07-11 22:20] LABS: Band 14 % (5-11); Hemoglobin 12.1 g/dL (12.0-16.0); Lymphocytes 7 % (21-51); MDiff Complete? YES; Mean Corpuscular HGB CONC 33.4 g/dL (32.0-36.0); Mean Corpuscular Hemoglobin 29.2 pg (27.0-31.0); Mean Corpuscular Volume 87.6 fL (78.0-98.0); Mean Platelet Volume 9.3 fL (7.4-10.4); Monocytes 4 % (0-10); Neutrophil 75 % (42-75); Platelet Count 222 thou/uL (130-400); Platelet Morphology Comment Appears Adequate; RBC Distribution Width 13.4 % (11.5-14.5); Red Blood Cell (RBC) Count 4.15 mill/uL (4.20-5.40); White Blood Cell (WBC) Count 24.2 thou/uL (4.8-10.8)
[2019-07-11 22:24] LABS: Hemoglobin A1c 8.5 % (4.0-6.0); INR-International Normal Ratio 1.2; Prothrombin Time 15.6 SEC (12.0-14.7)
[2019-07-11 22:25] LABS: PTT 28.4 SEC (22.9-36.1)
[2019-07-11 22:27] LABS: Bilirubin Negative (Negative); Blood, Urine 2+ (Negative); Clarity Turbid (Clear); Glucose, Urine (Dipstick) Normal (Negative); Leukocyte Negative Leu/uL (Negative); Nitrite Negative (Negative); Protein, Urine (Dipstick) 20 mg/dL (Neg-Trace); Urobilinogen Normal mg/dL (Less than 2)
[2019-07-11] MEDS: Albuterol Sulfate 2.5 mg/3 ml Neb NEB SCH (22:33)
[2019-07-11 22:34] LABS: Lactic Acid 1.7 mmol/L (0.5-2.2)
[2019-07-11 22:41] LABS: ALT (SGPT) 61 U/L (8-55); AST (SGOT) 73 U/L (5-34); Albumin 3.3 g/dL (3.5-5.0); Alkaline Phosphatase 86 U/L (40-110); Anion Gap 17 mmol/L (10-20); BUN (Urea Nitrogen) 24 mg/dL (9.8-20.1); Bilirubin, Total 0.5 mg/dL (0.2-1.2); Calc. Creatinine Clearance 0 mL/min (70-130); Calcium 8.4 mg/dL (7.8-10.44); Carbon Dioxide 19 mmol/L (22-29); Chloride 113 mmol/L (98-107); Estimated GFR-MDRD 30; Gamma GT (GGT) 124 U/L (9-36); Globulin 3.2 g/dL (2.4-3.5); Glucose 166 mg/dL (70-105); Lipase 17 U/L (8-78); Magnesium 1.7 mg/dL (1.6-2.6); Potassium 4.9 mmol/L (3.5-5.1); Protein, Total 6.5 g/dL (6.0-8.3); Sodium 144 mmol/L (136-145)
[2019-07-11] MEDS: Levothyroxine Sodium 400 MCG in Sodium Chloride 0.9% 100 ML IVPB SCH (22:54)
[2019-07-11] MEDS: Phytonadione 10 MG in Sodium Chloride 0.9% 50 ML IVPB SCH (23:06)
[2019-07-11 23:09] LABS: CKMB 22.1 ng/mL (0-6.6)
[2019-07-11 23:19] LABS: Actual Bicarbonate (HCO3a) 20.3 mEq/L (22-28); Base Excess (BEa) -3.9 mEq/L (-2.0 to +3.0); CO2 Tension 34.1 mmHg (35.0-45.0); Calcium, Ionized 1.05 mmol/L (1.12-1.30); Carboxyhemoglobin (COHb) 0.3 gm% (0.0-3.0); Hemoglobin (Hb) 12.5 g/dL (12.0-16.0); O2 Tension (PaO2) 99.9 mmHg (80.0-100.0); Potassium - ABG Lab 5.45 mmol/L (3.70-5.30); pH, Arterial 7.39 (7.35-7.45)
[2019-07-11 23:23] VITALS: BMI 44.7
[2019-07-11 23:23] LABS: ALV-art Gradient 213.975 (0-20); Puncture Site LINE
[2019-07-11] MEDS: Piperacillin/Tazobactam 3.375 GM in Sodium Chloride 0.9% 100 ML IVPB SCH (23:59)
[2019-07-12 00:06] LABS: Base Excess (BEa) -5.4 mEq/L (-2.0 to +3.0); CO2 Tension 33.6 mmHg (35.0-45.0); Calcium, Ionized 1.05 mmol/L (1.12-1.30); Carboxyhemoglobin (COHb) 0.8 gm% (0.0-3.0); Hemoglobin (Hb) 12.3 g/dL (12.0-16.0); Potassium - ABG Lab 5.98 mmol/L (3.70-5.30); pH, Arterial 7.37 (7.35-7.45)
[2019-07-12 00:09] LABS: Puncture Site LINE
[2019-07-12] MEDS: Albuterol Sulfate 2.5 mg/3 ml Neb NEB SCH ×6 (02:50→22:14)
[2019-07-12] MEDS: Norepinephrine 8 MG/0.9% NS 250 ML IVPB SCH (03:29)
[2019-07-12] MEDS: Levothyroxine Sodium 400 MCG in Sodium Chloride 0.9% 100 ML IVPB SCH (04:12)
[2019-07-12] MEDS: Phytonadione 10 MG in Sodium Chloride 0.9% 50 ML IVPB SCH (04:13)
[2019-07-12 04:20] LABS: INR-International Normal Ratio 1.3
[2019-07-12 04:21] LABS: PTT 26.7 SEC (22.9-36.1)
[2019-07-12 04:30] LABS: Hemoglobin 11.7 g/dL (12.0-16.0); Lactic Acid 2.8 mmol/L (0.5-2.2); Lymphocytes 3 % (21-51); MDiff Complete? YES; Mean Corpuscular HGB CONC 32.1 g/dL (32.0-36.0); Mean Corpuscular Hemoglobin 28.1 pg (27.0-31.0); Mean Corpuscular Volume 87.6 fL (78.0-98.0); Mean Platelet Volume 9.3 fL (7.4-10.4); Monocytes 2 % (0-10); Neutrophil 95 % (42-75); Platelet Count 223 thou/uL (130-400); Platelet Morphology Comment Appears Adequate; RBC Distribution Width 13.4 % (11.5-14.5); Red Blood Cell (RBC) Count 4.14 mill/uL (4.20-5.40); White Blood Cell (WBC) Count 21.3 thou/uL (4.8-10.8)
[2019-07-12 04:49] LABS: ALT (SGPT) 59 U/L (8-55); AST (SGOT) 61 U/L (5-34); Albumin 3.4 g/dL (3.5-5.0); Alkaline Phosphatase 90 U/L (40-110); Anion Gap 17 mmol/L (10-20); BUN (Urea Nitrogen) 26 mg/dL (9.8-20.1); Bilirubin, Direct 0.3 mg/dL (0.1-0.3); Bilirubin, Total 0.5 mg/dL (0.2-1.2); Calc. Creatinine Clearance 56 mL/min (70-130); Calcium 8.2 mg/dL (7.8-10.44); Carbon Dioxide 19 mmol/L (22-29); Chloride 116 mmol/L (98-107); Estimated GFR-MDRD 26; Globulin 3.3 g/dL (2.4-3.5); Glucose 230 mg/dL (70-105); Lipase 16 U/L (8-78); Magnesium 1.7 mg/dL (1.6-2.6); Phosphorus 6.2 mg/dL (2.3-4.7); Potassium 4.3 mmol/L (3.5-5.1); Protein, Total 6.7 g/dL (6.0-8.3); Sodium 148 mmol/L (136-145)
[2019-07-12] MEDS: Piperacillin/Tazobactam 3.375 GM in Sodium Chloride 0.9% 100 ML IVPB SCH ×4 (05:15→23:33)
[2019-07-12] MEDS: HUMULIN R 100 UNITS in Sodium Chloride 0.9% 100 ML IVPB SCH ×2 (05:20→21:15)
[2019-07-12] MEDS ORDERED: Magnesium Sulfate 4 GM in Sodium Chloride 0.9% 250 ML 250 ML IVPB SCH (05:45)
[2019-07-12] MEDS: Sodium Chloride 0.45% 1,000 ML IV SCH (05:51)
[2019-07-12 06:43] LABS: Base Excess (BEa) -4.6 mEq/L (-2.0 to +3.0); CO2 Tension 35.2 mmHg (35.0-45.0); Calcium, Ionized 1.13 mmol/L (1.12-1.30); Carboxyhemoglobin (COHb) 0.2 gm% (0.0-3.0); Hemoglobin (Hb) 11.3 g/dL (12.0-16.0); O2 Tension (PaO2) 288.8 mmHg (80.0-100.0); Potassium - ABG Lab 4.01 mmol/L (3.70-5.30); pH, Arterial 7.37 (7.35-7.45)
[2019-07-12 06:44] LABS: Puncture Site ALINE
--- NOTE | 2019-07-12 07:55 | RAD ---
EXAM: Single view of the chest HISTORY: Brain . Patient with respiratory failure. COMPARISON: 07/11/2019 FINDINGS: Single view of the chest shows an enlarged but stable cardiomediastinal silhouette. The li derrell and tubes are unchanged in position. There is no evidence of consolidation, mass, or pleural effusion. Degenerative changes are seen in the spine. IMPRESSION: No evidence of acute cardiopulmonary disease
--- NOTE | 2019-07-12 07:59 | CT ---
PRELIMINARY REPORT/[facility]/EMERGENCY AFTER HOURS PROCEDURE: CT chest abdomen and pelvis without contrast Comparison: None Indication: STA patient. Organ donor Findings: Confluent consolidation in both lower lungs with little volume loss. This is most likely pn eumonia. Cardiomegaly. No pericardial effusion. Normal endotracheal tube. The mediastinum is otherwise normal. Normally positioned. Esophageal gastric tube. Contrast retention in the renal osiris x on the right and left. Normal gallbladder. No biliary ductal dilatation. Macro soft tissue indeterminate nodule of the right adrenal gland measuring 2.4 cm. Small amount of fluid surrounding t he right kidney. Small amount of free fluid in the pelvis. No bowel obstruction, free air or suggestion of diverticulitis. The urinary bladder is collapsed around a Dinero catheter. Impression: Probable pneumonia in both lung bases that may be aspiration pneumonia. Cardiomegaly. Indeterminate n odular density in the right adrenal gland with fluid around the right kidney. This could be a pre-existing indeterminate adrenal nodule. Malignancy is unlikely but not excluded. This could also b e a small adrenal hematoma. Fluid around the right kidney and adrenal gland could be small volume hemorrhage related to injury. No focal laceration identified. Retained contrast in the renal cortex c ould be from recent previous contrast study. Small amount of contrast in the bladder. Correlate clinically for renal failure. Small volume free fluid in the pelvis could be hemoperitoneum. This is indeterminate. ELECTRONICALLY SIGNED BY: Osman Castillo MD Jul 12, 2019 2:00:11 AM [facility] FINAL REPORT CT CHEST, ABDOMEN AND PELVIS WITHOUT IV CONTRAST: I agree with the preliminary report given by Dr. Osman Castillo of [facility]. Contrast in the kidneys is likely from the CT pulmonary angiogram performed on 07/10/2019. Transcribed Date/Time: 07/12/2019 8:24 AM
[2019-07-12 09:57] LABS: Bilirubin Negative (Negative); Blood, Urine Trace (Negative); Clarity Clear (Clear); Glucose, Urine (Dipstick) Normal (Negative); Leukocyte Negative Leu/uL (Negative); Nitrite Negative (Negative); Protein, Urine (Dipstick) Negative (Neg-Trace); Urobilinogen Normal mg/dL (Less than 2)
[2019-07-12 09:59] LABS: INR-International Normal Ratio 1.3; PTT 29.6 SEC (22.9-36.1); Prothrombin Time 16.1 SEC (12.0-14.7)
[2019-07-12 10:04] LABS: Mean Corpuscular HGB CONC 32.2 g/dL (32.0-36.0); Mean Corpuscular Hemoglobin 28.5 pg (27.0-31.0); Mean Corpuscular Volume 88.5 fL (78.0-98.0); Mean Platelet Volume 9.7 fL (7.4-10.4); Platelet Count 202 thou/uL (130-400); RBC Distribution Width 13.7 % (11.5-14.5); Red Blood Cell (RBC) Count 3.84 mill/uL (4.20-5.40); White Blood Cell (WBC) Count 19.4 thou/uL (4.8-10.8)
[2019-07-12 10:18] LABS: ALT (SGPT) 51 U/L (8-55); AST (SGOT) 50 U/L (5-34); Albumin 3.2 g/dL (3.5-5.0); Alkaline Phosphatase 82 U/L (40-110); Anion Gap 14 mmol/L (10-20); BUN (Urea Nitrogen) 25 mg/dL (9.8-20.1); Bilirubin, Direct 0.2 mg/dL (0.1-0.3); Bilirubin, Total 0.4 mg/dL (0.2-1.2); Calc. Creatinine Clearance 57 mL/min (70-130); Calcium 8.2 mg/dL (7.8-10.44); Carbon Dioxide 19 mmol/L (22-29); Chloride 121 mmol/L (98-107); Estimated GFR-MDRD 26; Globulin 3.1 g/dL (2.4-3.5); Glucose 162 mg/dL (70-105); Lipase 14 U/L (8-78); Magnesium 2.6 mg/dL (1.6-2.6); Phosphorus 5.3 mg/dL (2.3-4.7); Protein, Total 6.3 g/dL (6.0-8.3); Sodium 150 mmol/L (136-145)
--- NOTE | 2019-07-12 10:44 | RAD ---
Exam: Chest one view HISTORY:Radiograph. Donor. Comparison: 07/12/2019 FINDINGS: Cardiac silhouette:Stable cardia megaly. Lines and tubes: Stable endotracheal tube, nasogastric tube and left internal jugular central venous catheter. Aorta: Unremarkable Pulmonary vessels: Normal Costophrenic angles: Clear LUNGS: Patchy interstitial opacities, unchanged. Pneumothorax: None Osseous abnormalities: None IMPRESSION: No acute cardiopulmonary process. No significant interval change.
[2019-07-12 10:45] LABS: Band 4 % (5-11); Lymphocytes 4 % (21-51); MDiff Complete? YES; Monocytes 2 % (0-10); Neutrophil 90 % (42-75); Platelet Morphology Comment Appears Adequate; RBC Morphology Normal
[2019-07-12] MEDS ORDERED: Potassium Chloride 20 MEQ in Premix Bag 1 BAG IVPB SCH (11:00)
[2019-07-12 12:56] LABS: Actual Bicarbonate (HCO3a) 20.4 mEq/L (22-28); Base Excess (BEa) -4.1 mEq/L (-2.0 to +3.0); CO2 Tension 35.2 mmHg (35.0-45.0); Calcium, Ionized 1.13 mmol/L (1.12-1.30); Hemoglobin (Hb) 10.7 g/dL (12.0-16.0); O2 Tension (PaO2) 302.9 mmHg (80.0-100.0); Potassium - ABG Lab 3.72 mmol/L (3.70-5.30); pH, Arterial 7.38 (7.35-7.45)
[2019-07-12 12:58] LABS: Puncture Site ALINE
[2019-07-12 15:31] LABS: #Lymphocytes 1.1 thou/uL (1.20-3.40); #Monocytes 0.5 thou/uL (0.11-0.59); #Neutrophils 17.5 thou/uL (1.40-6.50); %Basophils 0.1 % (0.0-1.0); %Lymphocytes 5.7 % (21.0-51.0); %Monocytes 2.5 % (0.0-10.0); %Neutrophils 91.7 % (42.0-75.0); Hemoglobin 10.7 g/dL (12.0-16.0); Mean Corpuscular HGB CONC 32.7 g/dL (32.0-36.0); Mean Corpuscular Hemoglobin 28.9 pg (27.0-31.0); Mean Corpuscular Volume 88.5 fL (78.0-98.0); Mean Platelet Volume 9.4 fL (7.4-10.4); Platelet Count 185 thou/uL (130-400); RBC Distribution Width 13.7 % (11.5-14.5); Red Blood Cell (RBC) Count 3.69 mill/uL (4.20-5.40); White Blood Cell (WBC) Count 19.1 thou/uL (4.8-10.8)
[2019-07-12 15:51] LABS: INR-International Normal Ratio 1.3; Prothrombin Time 16.2 SEC (12.0-14.7)
[2019-07-12 15:52] LABS: PTT 28.8 SEC (22.9-36.1)
[2019-07-12 15:56] LABS: ALT (SGPT) 46 U/L (8-55); AST (SGOT) 42 U/L (5-34); Albumin 3.1 g/dL (3.5-5.0); Alkaline Phosphatase 77 U/L (40-110); Anion Gap 14 mmol/L (10-20); BUN (Urea Nitrogen) 25 mg/dL (9.8-20.1); Bilirubin, Direct 0.2 mg/dL (0.1-0.3); Bilirubin, Total 0.4 mg/dL (0.2-1.2); Calc. Creatinine Clearance 57 mL/min (70-130); Calcium 8.3 mg/dL (7.8-10.44); Carbon Dioxide 19 mmol/L (22-29); Chloride 122 mmol/L (98-107); Estimated GFR-MDRD 27; Globulin 3.2 g/dL (2.4-3.5); Glucose 128 mg/dL (70-105); Lipase 10 U/L (8-78); Magnesium 2.6 mg/dL (1.6-2.6); Phosphorus 4.3 mg/dL (2.3-4.7); Potassium 3.5 mmol/L (3.5-5.1); Protein, Total 6.3 g/dL (6.0-8.3); Sodium 151 mmol/L (136-145)
--- NOTE | 2019-07-12 16:09 | RAD ---
EXAM: Single view of the chest HISTORY: Patient with respiratory failure and brain COMPARISON: 07/12/2019 9:39 AM FINDINGS: Single view of the chest shows an enlarged but stable cardiomediastinal silhouette. The li derrell and tubes are unchanged in position. There is no evidence of consolidation, mass, or pleural effusion. The bones are unremarkable. IMPRESSION: Stable exam
[2019-07-12 16:18] LABS: Lactic Acid 1.9 mmol/L (0.5-2.2)
[2019-07-12] MEDS ORDERED: Potassium Chloride 40 MEQ in Premix Bag 1 BAG IVPB SCH ×2 (16:30→23:30)
[2019-07-12 17:51] LABS: Actual Bicarbonate (HCO3a) 20.3 mEq/L (22-28); Base Excess (BEa) -3.9 mEq/L (-2.0 to +3.0); CO2 Tension 33.4 mmHg (35.0-45.0); Calcium, Ionized 1.15 mmol/L (1.12-1.30); Carboxyhemoglobin (COHb) 0.4 gm% (0.0-3.0); Hemoglobin (Hb) 10.3 g/dL (12.0-16.0); O2 Tension (PaO2) 364.2 mmHg (80.0-100.0); Potassium - ABG Lab 3.88 mmol/L (3.70-5.30)
[2019-07-12 17:54] LABS: Puncture Site ALINE
[2019-07-12] MEDS ORDERED: Albumin 25% 25 GM/100 ML BOT IVPB SCH (19:45)
[2019-07-12 22:00] LABS: Actual Bicarbonate (HCO3a) 19.1 mEq/L (22-28); Base Excess (BEa) -4.6 mEq/L (-2.0 to +3.0); CO2 Tension 30.1 mmHg (35.0-45.0); Calcium, Ionized 1.12 mmol/L (1.12-1.30); Carboxyhemoglobin (COHb) 0.6 gm% (0.0-3.0); Hemoglobin (Hb) 8.6 g/dL (12.0-16.0); Potassium - ABG Lab 3.46 mmol/L (3.70-5.30); pH, Arterial 7.42 (7.35-7.45)
[2019-07-12 22:01] LABS: O2 Tension (PaO2) 504.7 mmHg (80.0-100.0)
[2019-07-12 22:02] LABS: ALV-art Gradient -257.125 (0-20); Puncture Site LINE
--- NOTE | 2019-07-12 22:07 | RAD ---
Chest one view HISTORY: Intubated. Dyspnea. COMPARISON: 07/12/2019. Earlier exam on the same date. FINDINGS: Pulmonary vasculature is now engorged with dense bilateral perihilar infiltrates and widesp read interstitial and alveolar opacity. Mediastinum is midline. Lines and tubes appear unchanged in position. monitor worker leads overlie t he chest. IMPRESSION: Development of pulmonary edema.
[2019-07-12 22:22] LABS: #Lymphocytes 0.9 thou/uL (1.20-3.40); #Monocytes 0.5 thou/uL (0.11-0.59); #Neutrophils 14.5 thou/uL (1.40-6.50); %Basophils 0.1 % (0.0-1.0); %Eosinophils 0.1 % (0.0-10.0); %Lymphocytes 5.8 % (21.0-51.0); %Monocytes 3.1 % (0.0-10.0); %Neutrophils 90.9 % (42.0-75.0); Hemoglobin 9.2 g/dL (12.0-16.0); Mean Corpuscular HGB CONC 33.7 g/dL (32.0-36.0); Mean Corpuscular Hemoglobin 29.7 pg (27.0-31.0); Mean Platelet Volume 8.9 fL (7.4-10.4); Platelet Count 130 thou/uL (130-400); RBC Distribution Width 13.8 % (11.5-14.5)
[2019-07-12 22:31] LABS: INR-International Normal Ratio 1.4; PTT 29.1 SEC (22.9-36.1); Prothrombin Time 17.1 SEC (12.0-14.7)
[2019-07-12 22:37] LABS: Bilirubin Negative (Negative); Blood, Urine 3+ (Negative); Clarity Turbid (Clear); Glucose, Urine (Dipstick) Normal (Negative); Leukocyte Negative Leu/uL (Negative); Nitrite Negative (Negative); Protein, Urine (Dipstick) 30 mg/dL (Neg-Trace); RBC/HPF 0-3 HPF (0-3); Urobilinogen Normal mg/dL (Less than 2)
[2019-07-12 22:43] LABS: ALT (SGPT) 38 U/L (8-55); AST (SGOT) 34 U/L (5-34); Albumin 3.6 g/dL (3.5-5.0); Alkaline Phosphatase 68 U/L (40-110); Anion Gap 12 mmol/L (10-20); BUN (Urea Nitrogen) 25 mg/dL (9.8-20.1); Bilirubin, Direct 0.3 mg/dL (0.1-0.3); Bilirubin, Total 0.5 mg/dL (0.2-1.2); Calc. Creatinine Clearance 59 mL/min (70-130); Calcium 8.4 mg/dL (7.8-10.44); Carbon Dioxide 21 mmol/L (22-29); Chloride 124 mmol/L (98-107); Estimated GFR-MDRD 27; Globulin 2.7 g/dL (2.4-3.5); Glucose 91 mg/dL (70-105); Magnesium 2.5 mg/dL (1.6-2.6); Phosphorus 3.6 mg/dL (2.3-4.7); Potassium 3.7 mmol/L (3.5-5.1); Protein, Total 6.3 g/dL (6.0-8.3); Sodium 153 mmol/L (136-145)
[2019-07-12 22:46] LABS: Bacteria/HPF Rare-Few HPF (None Seen)
[2019-07-12 22:47] LABS: Urine Culture Reflex No No
[2019-07-12] MEDS ORDERED: Sodium Chloride 0.45% 250 ML IV SCH (23:30)
[2019-07-13] MEDS: Levothyroxine Sodium 400 MCG in Sodium Chloride 0.9% 100 ML IVPB SCH ×3 (00:15→22:23)
[2019-07-13] MEDS: HUMULIN R 100 UNITS in Sodium Chloride 0.9% 100 ML IVPB SCH ×3 (00:15→22:22)
[2019-07-13] MEDS: Norepinephrine 8 MG/0.9% NS 250 ML IVPB SCH (00:18)
[2019-07-13 01:08] LABS: Actual Bicarbonate (HCO3a) 19.8 mEq/L (22-28); CO2 Tension 30.8 mmHg (35.0-45.0); Calcium, Ionized 1.14 mmol/L (1.12-1.30); Carboxyhemoglobin (COHb) 0.2 gm% (0.0-3.0); O2 Tension (PaO2) 158.4 mmHg (80.0-100.0); Potassium - ABG Lab 4.44 mmol/L (3.70-5.30); Puncture Site LINE; pH, Arterial 7.43 (7.35-7.45)
[2019-07-13] MEDS ORDERED: Albumin 25% 25 GM/100 ML BOT IVPB SCH (02:15)
[2019-07-13] MEDS: Albuterol Sulfate 2.5 mg/3 ml Neb NEB SCH ×6 (02:34→22:08)
[2019-07-13] MEDS: Sodium Chloride 0.45% 1,000 ML IV SCH ×3 (02:45→21:42)
[2019-07-13 04:19] LABS: Actual Bicarbonate (HCO3a) 22.3 mEq/L (22-28); Base Excess (BEa) -3.5 mEq/L (-2.0 to +3.0); CO2 Tension 43.7 mmHg (35.0-45.0); Calcium, Ionized 1.16 mmol/L (1.12-1.30); Carboxyhemoglobin (COHb) 0.4 gm% (0.0-3.0); Hemoglobin (Hb) 8.8 g/dL (12.0-16.0); O2 Tension (PaO2) 408.4 mmHg (80.0-100.0); pH, Arterial 7.33 (7.35-7.45)
[2019-07-13 04:20] LABS: ALV-art Gradient -177.825 (0-20); Puncture Site LINE
[2019-07-13 04:36] LABS: INR-International Normal Ratio 1.4; PTT 26.2 SEC (22.9-36.1); Prothrombin Time 17.1 SEC (12.0-14.7)
[2019-07-13 04:50] LABS: ALT (SGPT) 33 U/L (8-55); AST (SGOT) 33 U/L (5-34); Albumin 4.2 g/dL (3.5-5.0); Alkaline Phosphatase 67 U/L (40-110); Anion Gap 12 mmol/L (10-20); BUN (Urea Nitrogen) 26 mg/dL (9.8-20.1); Bilirubin, Direct 0.4 mg/dL (0.1-0.3); Bilirubin, Total 0.6 mg/dL (0.2-1.2); Calc. Creatinine Clearance 56 mL/min (70-130); Calcium 8.6 mg/dL (7.8-10.44); Carbon Dioxide 22 mmol/L (22-29); Chloride 123 mmol/L (98-107); Estimated GFR-MDRD 26; Globulin 2.5 g/dL (2.4-3.5); Glucose 85 mg/dL (70-105); Magnesium 2.5 mg/dL (1.6-2.6); Phosphorus 4.1 mg/dL (2.3-4.7); Potassium 4.4 mmol/L (3.5-5.1); Protein, Total 6.7 g/dL (6.0-8.3); Sodium 153 mmol/L (136-145)
[2019-07-13] MEDS: Piperacillin/Tazobactam 3.375 GM in Sodium Chloride 0.9% 100 ML IVPB SCH ×4 (05:15→23:58)
[2019-07-13 05:18] LABS: Band 12 % (5-11); Hemoglobin 8.8 g/dL (12.0-16.0); Lymphocytes 8 % (21-51); MDiff Complete? YES; Mean Corpuscular HGB CONC 33.1 g/dL (32.0-36.0); Mean Corpuscular Hemoglobin 29.3 pg (27.0-31.0); Mean Corpuscular Volume 88.6 fL (78.0-98.0); Mean Platelet Volume 9.3 fL (7.4-10.4); Monocytes 1 % (0-10); Neutrophil 79 % (42-75); Platelet Count 131 thou/uL (130-400); RBC Distribution Width 13.8 % (11.5-14.5); Red Blood Cell (RBC) Count 2.99 mill/uL (4.20-5.40); White Blood Cell (WBC) Count 15.4 thou/uL (4.8-10.8)
[2019-07-13 07:40] LABS: Actual Bicarbonate (HCO3a) 21.2 mEq/L (22-28); Base Excess (BEa) -5.8 mEq/L (-2.0 to +3.0); CO2 Tension 47.3 mmHg (35.0-45.0); Calcium, Ionized 1.17 mmol/L (1.12-1.30); Carboxyhemoglobin (COHb) 0.8 gm% (0.0-3.0); Hemoglobin (Hb) 13.1 g/dL (12.0-16.0); Potassium - ABG Lab 5.28 mmol/L (3.70-5.30); pH, Arterial 7.27 (7.35-7.45)
[2019-07-13 07:42] LABS: Puncture Site ALINE
[2019-07-13 07:43] LABS: ALV-art Gradient 269.875 (0-20)
[2019-07-13] MEDS ORDERED: Heparin (Artline) 1,000 ML ONE (09:06)
[2019-07-13] MEDS ORDERED: Lidocaine 1% (PF) 30 ML VIAL ONE (09:11)
[2019-07-13] MEDS ORDERED: Iopamidol 370 76% 100 ML VIAL ONE (09:47)
--- NOTE | 2019-07-13 09:58 | RAD ---
PORTABLE CHEST: DATE: 07/13/2019. PROVIDED CLINICAL HISTORY: Respiratory insufficiency. FINDINGS: Comparison 07/12/2019. Mild interval improvement in bilateral parahilar airspace disease. Additional significant interval change with respect to the prior examination is not apparent. IMPRESSION: As above. POS: OFF
[2019-07-13 10:24] LABS: ALT (SGPT) 35 U/L (8-55); AST (SGOT) 37 U/L (5-34); Albumin 4.1 g/dL (3.5-5.0); Alkaline Phosphatase 108 U/L (40-110); Anion Gap 12 mmol/L (10-20); BUN (Urea Nitrogen) 30 mg/dL (9.8-20.1); Bilirubin, Direct 0.4 mg/dL (0.1-0.3); Bilirubin, Total 0.6 mg/dL (0.2-1.2); Calc. Creatinine Clearance 53 mL/min (70-130); Calcium 8.5 mg/dL (7.8-10.44); Carbon Dioxide 22 mmol/L (22-29); Chloride 124 mmol/L (98-107); Estimated GFR-MDRD 24; Globulin 2.6 g/dL (2.4-3.5); Glucose 135 mg/dL (70-105); INR-International Normal Ratio 1.4; Magnesium 2.6 mg/dL (1.6-2.6); PTT 28.4 SEC (22.9-36.1); Phosphorus 5.3 mg/dL (2.3-4.7); Potassium 5.5 mmol/L (3.5-5.1); Protein, Total 6.7 g/dL (6.0-8.3); Sodium 152 mmol/L (136-145)
[2019-07-13 10:27] LABS: #Lymphocytes 1.1 thou/uL (1.20-3.40); #Monocytes 0.5 thou/uL (0.11-0.59); #Neutrophils 16.6 thou/uL (1.40-6.50); %Lymphocytes 6.1 % (21.0-51.0); %Neutrophils 90.9 % (42.0-75.0); Band 2 % (5-11); Lymphocytes 7 % (21-51); MDiff Complete? YES; Mean Corpuscular Hemoglobin 29.4 pg (27.0-31.0); Mean Corpuscular Volume 89.3 fL (78.0-98.0); Mean Platelet Volume 8.8 fL (7.4-10.4); Monocytes 4 % (0-10); Neutrophil 87 % (42-75); Platelet Count 117 thou/uL (130-400); Platelet Morphology Comment Appears Decreased; Polychromasia SLIGHT = 2-3 cells (100X) (0-2/hpf); Red Blood Cell (RBC) Count 3.06 mill/uL (4.20-5.40); White Blood Cell (WBC) Count 18.2 thou/uL (4.8-10.8)
[2019-07-13] MEDS ORDERED: Calcium Gluconate 4.6 MEQ in Sodium Chloride 0.9% 100 ML IVPB SCH (12:45)
--- NOTE | 2019-07-13 12:59 | RAD ---
PORTABLE SEMIUPRIGHT FRONTAL CHEST RADIOGRAPH: Date: 07/13/2019 Time: 1126 hours COMPARISON: 07/13/2019 at 0414 hours. HISTORY: Evaluate pulmonary status. FINDINGS: Stable endotracheal tube, nasogastric tube, and left-sided vascular catheter. There is enlargement of the cardiac silhouette. There is mild pulmonary vascular congestion. There has been interval improve ment in perihilar and bibasilar aeration with mild persistent perihilar interstitial prominence. Find ings may signify improving interstitial edema. No lobar consolidation or alveolar edema. IMPRESSION: Portable chest radiograph as detailed above. POS: TPC
[2019-07-13] MEDS ORDERED: Furosemide 20 MG/2 ML VIAL SLOW IVP SCH ×3 (13:04→19:45)
[2019-07-13 13:27] LABS: Bilirubin Negative (Negative); Blood, Urine 2+ (Negative); Clarity Turbid (Clear); Glucose, Urine (Dipstick) Normal (Negative); Leukocyte Negative Leu/uL (Negative); Nitrite Negative (Negative); Protein, Urine (Dipstick) 30 mg/dL (Neg-Trace); Squamous Epithelial 0-3 HPF (0-3); Urobilinogen Normal mg/dL (Less than 2)
[2019-07-13 13:28] LABS: Bacteria/HPF 1+ HPF (None Seen); Urine Culture Reflex Yes Yes
[2019-07-13 14:21] VITALS: TEMP 98.3
--- NOTE | 2019-07-13 14:58 | ULT ---
US Hepatic Bx HISTORY: Organ donation. Brain . COMPARISON: None. FINDINGS: Anterior aspect of the upper abdomen was prepped and draped in usual sterile fashion. Steri le technique, buffered local anesthesia, sonographic guidance, and an anterior subxiphoid approach were used to carefully advance a 17-gauge trocar needle into the left liver lobe. Position confirmed with sonography. A total of 2 18-gauge core biopsy specimens were obtained and submitted to pathology for evaluation. Needle was removed. No evidence of complication. Patient tolerated the procedure well. IMPRESSION: Technically successful sonographic guided random hepatic biopsy. Pathology is pending.
[2019-07-13] MEDS: Vancomycin HCl 1 GM in Premix Bag 1 BAG IVPB SCH (15:01)
[2019-07-13 16:10] LABS: #Lymphocytes 2.1 thou/uL (1.20-3.40); #Monocytes 0.7 thou/uL (0.11-0.59); #Neutrophils 15.8 thou/uL (1.40-6.50); %Basophils 0.2 % (0.0-1.0); %Eosinophils 0.1 % (0.0-10.0); %Lymphocytes 11.3 % (21.0-51.0); %Monocytes 3.6 % (0.0-10.0); %Neutrophils 84.8 % (42.0-75.0); Hemoglobin 9.4 g/dL (12.0-16.0); Mean Corpuscular HGB CONC 31.9 g/dL (32.0-36.0); Mean Corpuscular Hemoglobin 28.7 pg (27.0-31.0); Mean Corpuscular Volume 89.9 fL (78.0-98.0); Mean Platelet Volume 9.8 fL (7.4-10.4); Platelet Count 148 thou/uL (130-400); RBC Distribution Width 14.1 % (11.5-14.5); Red Blood Cell (RBC) Count 3.28 mill/uL (4.20-5.40); White Blood Cell (WBC) Count 18.6 thou/uL (4.8-10.8)
--- NOTE | 2019-07-13 16:18 | RAD ---
XR Chest 1 View Portable HISTORY: Organ donor COMPARISON: Earlier exam of 11:26 AM from same date FINDINGS: Stable endotracheal tube, nasogastric tube, and left-sided vascular catheter. There is enlargement of the cardiac silhouette. There is mild pulmonary vascular congestion. There is increased haziness at the lung bases bilaterally.
[2019-07-13 16:19] LABS: INR-International Normal Ratio 1.4; Prothrombin Time 16.8 SEC (12.0-14.7)
[2019-07-13 16:35] LABS: ALT (SGPT) 35 U/L (8-55); AST (SGOT) 38 U/L (5-34); Albumin 3.9 g/dL (3.5-5.0); Alkaline Phosphatase 110 U/L (40-110); Anion Gap 12 mmol/L (10-20); BUN (Urea Nitrogen) 34 mg/dL (9.8-20.1); Bilirubin, Direct 0.5 mg/dL (0.1-0.3); Bilirubin, Total 0.8 mg/dL (0.2-1.2); Calc. Creatinine Clearance 53 mL/min (70-130); Calcium 8.8 mg/dL (7.8-10.44); Carbon Dioxide 21 mmol/L (22-29); Chloride 123 mmol/L (98-107); Estimated GFR-MDRD 24; Globulin 2.7 g/dL (2.4-3.5); Glucose 190 mg/dL (70-105); Magnesium 2.5 mg/dL (1.6-2.6); Phosphorus 4.6 mg/dL (2.3-4.7); Potassium 5.3 mmol/L (3.5-5.1); Protein, Total 6.6 g/dL (6.0-8.3); Sodium 151 mmol/L (136-145)
[2019-07-13 16:52] LABS: Actual Bicarbonate (HCO3a) 22.6 mEq/L (22-28); Base Excess (BEa) -3.8 mEq/L (-2.0 to +3.0); Carboxyhemoglobin (COHb) 0.6 gm% (0.0-3.0); Hemoglobin (Hb) 9.8 g/dL (12.0-16.0); O2 Tension (PaO2) 282.4 mmHg (80.0-100.0); Potassium - ABG Lab 4.99 mmol/L (3.70-5.30)
[2019-07-13 16:54] LABS: Puncture Site ALINE
--- NOTE | 2019-07-13 19:04 | RAD ---
RADIOGRAPH CHEST 1 VIEW: DATE: 07/13/2019 HISTORY: 54-year-old female status post brain . Organ donor. FINDINGS: There is no evidence of airspace density, pulmonary edema, or pneumothorax. The lateral costophrenic angles are not effaced. Magnification of cardiac shadow. Endotracheal tube with distal tip at mid thoracic trachea. Esophagogastric tube partially visualized. Left IJ central line. IMPRESSION: No acute pulmonary findings.
[2019-07-13] MEDS ORDERED: Atorvastatin Calcium 40 MG TAB PER TUBE SCH (21:30)
[2019-07-13] MEDS: Furosemide 20 MG/2 ML VIAL SLOW IVP PRN (21:59)
--- NOTE | 2019-07-13 21:59 | RAD ---
RADIOGRAPH CHEST 1 VIEW: DATE: 07/13/2019 9:14 PM HISTORY: 54-year-old female status post brain . Organ donor. COMPARISON: 07/13/2019 6:20 PM FINDINGS: Prone image. There is no evidence of airspace density, pulmonary edema, or pneumothorax. The lateral costophrenic angles are not effaced. Magnification of cardiac shadow. Endotracheal tube with distal tip at mid thoracic trachea. Esophagogastric tube partially visualized. Left IJ central line. There h as been no interval change. IMPRESSION: No acute pulmonary findings.
[2019-07-13] MEDS ORDERED: Azithromycin 500 MG in Sodium Chloride 0.9% 250 ML 250 ML IVPB SCH (22:00)
[2019-07-13 22:38] LABS: Hemoglobin 9.4 g/dL (12.0-16.0); Mean Corpuscular HGB CONC 31.8 g/dL (32.0-36.0); Mean Corpuscular Hemoglobin 28.6 pg (27.0-31.0); Mean Corpuscular Volume 89.9 fL (78.0-98.0); Mean Platelet Volume 10.5 fL (7.4-10.4); Platelet Count 179 thou/uL (130-400); RBC Distribution Width 14.5 % (11.5-14.5); Red Blood Cell (RBC) Count 3.29 mill/uL (4.20-5.40); White Blood Cell (WBC) Count 18.5 thou/uL (4.8-10.8)
[2019-07-13 22:42] LABS: INR-International Normal Ratio 1.3; PTT 27.9 SEC (22.9-36.1); Prothrombin Time 16.2 SEC (12.0-14.7)
[2019-07-13 22:44] LABS: Bilirubin Negative (Negative); Blood, Urine 1+ (Negative); Clarity Clear (Clear); Glucose, Urine (Dipstick) Normal (Negative); Leukocyte Negative Leu/uL (Negative); Nitrite Negative (Negative); Protein, Urine (Dipstick) Negative (Neg-Trace); Urobilinogen Normal mg/dL (Less than 2)
[2019-07-13 22:58] LABS: Band 7 % (5-11); Lymphocytes 5 % (21-51); MDiff Complete? YES; Neutrophil 88 % (42-75)
[2019-07-13 23:05] LABS: ALT (SGPT) 38 U/L (8-55); AST (SGOT) 47 U/L (5-34); Alkaline Phosphatase 145 U/L (40-110); Anion Gap 17 mmol/L (10-20); BUN (Urea Nitrogen) 34 mg/dL (9.8-20.1); Bilirubin, Direct 0.3 mg/dL (0.1-0.3); Bilirubin, Total 0.7 mg/dL (0.2-1.2); Calc. Creatinine Clearance 51 mL/min (70-130); Calcium 9.1 mg/dL (7.8-10.44); Carbon Dioxide 19 mmol/L (22-29); Chloride 122 mmol/L (98-107); Estimated GFR-MDRD 23; Globulin 2.9 g/dL (2.4-3.5); Glucose 89 mg/dL (70-105); Magnesium 2.4 mg/dL (1.6-2.6); Phosphorus 4.1 mg/dL (2.3-4.7); Potassium 4.5 mmol/L (3.5-5.1); Protein, Total 6.9 g/dL (6.0-8.3); Sodium 153 mmol/L (136-145)
[2019-07-13 23:12] LABS: Actual Bicarbonate (HCO3a) 23.2 mEq/L (22-28); Base Excess (BEa) -1.9 mEq/L (-2.0 to +3.0); CO2 Tension 40.9 mmHg (35.0-45.0); Calcium, Ionized 1.17 mmol/L (1.12-1.30); Carboxyhemoglobin (COHb) 0.3 gm% (0.0-3.0); Hemoglobin (Hb) 9.6 g/dL (12.0-16.0); O2 Tension (PaO2) 441.3 mmHg (80.0-100.0); Potassium - ABG Lab 3.85 mmol/L (3.70-5.30); pH, Arterial 7.37 (7.35-7.45)
[2019-07-13 23:13] LABS: Puncture Site ART LINE
[2019-07-13 23:14] LABS: ALV-art Gradient 220.575 (0-20)
[2019-07-13] MEDS ORDERED: Mannitol 12.5 GM/50 ML IV SCH (23:59)
[2019-07-14] MEDS: Phenylephrine HCL 20 MG in Sodium Chloride 0.9% 250 ML 250 ML IVPB SCH ×2 (00:28→04:22)
[2019-07-14] MEDS: Acetylcysteine 20% 200 MG/ML 30 ML VIAL FS SCH ×2 (00:28→06:35)
[2019-07-14] MEDS ORDERED: Tobramycin 80 MG/2 ML VIAL FS SCH (01:00)
[2019-07-14] MEDS: Furosemide 20 MG/2 ML VIAL SLOW IVP PRN ×2 (01:11→05:00)
[2019-07-14] MEDS: Albuterol Sulfate 2.5 mg/3 ml Neb NEB SCH ×2 (02:38→07:07)
[2019-07-14 03:11] LABS: Actual Bicarbonate (HCO3a) 23.1 mEq/L (22-28); CO2 Tension 36.2 mmHg (35.0-45.0); Calcium, Ionized 1.17 mmol/L (1.12-1.30); Carboxyhemoglobin (COHb) 0.4 gm% (0.0-3.0); Hemoglobin (Hb) 11.5 g/dL (12.0-16.0); Potassium - ABG Lab 3.59 mmol/L (3.70-5.30); pH, Arterial 7.42 (7.35-7.45)
[2019-07-14 03:12] LABS: Puncture Site ART LINE
[2019-07-14] MEDS: Vancomycin HCl 1 GM in Premix Bag 1 BAG IVPB SCH (03:15)
[2019-07-14] MEDS ORDERED: Azithromycin 500 MG in Sodium Chloride 0.9% 250 ML 250 ML IVPB SCH (06:00)
[2019-07-14 06:23] LABS: Hemoglobin 9.5 g/dL (12.0-16.0); Mean Corpuscular HGB CONC 32.6 g/dL (32.0-36.0); Mean Corpuscular Hemoglobin 29.1 pg (27.0-31.0); Mean Corpuscular Volume 89.3 fL (78.0-98.0); Mean Platelet Volume 9.6 fL (7.4-10.4); Platelet Count 168 thou/uL (130-400); RBC Distribution Width 14.3 % (11.5-14.5); Red Blood Cell (RBC) Count 3.25 mill/uL (4.20-5.40); White Blood Cell (WBC) Count 20.1 thou/uL (4.8-10.8)
[2019-07-14 06:27] LABS: INR-International Normal Ratio 1.2; PTT 26.4 SEC (22.9-36.1); Prothrombin Time 15.6 SEC (12.0-14.7)
[2019-07-14] MEDS: Piperacillin/Tazobactam 3.375 GM in Sodium Chloride 0.9% 100 ML IVPB SCH (06:35)
[2019-07-14 06:44] LABS: ALT (SGPT) 37 U/L (8-55); AST (SGOT) 40 U/L (5-34); Albumin 3.9 g/dL (3.5-5.0); Alkaline Phosphatase 123 U/L (40-110); Anion Gap 14 mmol/L (10-20); BUN (Urea Nitrogen) 40 mg/dL (9.8-20.1); Bilirubin, Direct 0.4 mg/dL (0.1-0.3); Bilirubin, Total 0.8 mg/dL (0.2-1.2); Calc. Creatinine Clearance 49 mL/min (70-130); Calcium 9.1 mg/dL (7.8-10.44); Carbon Dioxide 23 mmol/L (22-29); Chloride 120 mmol/L (98-107); Estimated GFR-MDRD 22; Globulin 2.9 g/dL (2.4-3.5); Glucose 102 mg/dL (70-105); Magnesium 2.2 mg/dL (1.6-2.6); Phosphorus 3.6 mg/dL (2.3-4.7); Potassium 3.4 mmol/L (3.5-5.1); Protein, Total 6.8 g/dL (6.0-8.3); Sodium 154 mmol/L (136-145)
[2019-07-14 06:45] LABS: Band 9 % (5-11); Lymphocytes 7 % (21-51); MDiff Complete? YES; Monocytes 3 % (0-10); Neutrophil 81 % (42-75)
[2019-07-14 06:46] LABS: Bilirubin Negative (Negative); Blood, Urine 1+ (Negative); Clarity Turbid (Clear); Glucose, Urine (Dipstick) Normal (Negative); Leukocyte Negative Leu/uL (Negative); Nitrite Negative (Negative); Protein, Urine (Dipstick) Negative (Neg-Trace); Urobilinogen Normal mg/dL (Less than 2)
[2019-07-14 07:11] VITALS: BP 141/65
--- NOTE | 2019-07-14 07:44 | RAD ---
EXAM: Portable chest PROVIDED CLINICAL HISTORY: Respiratory insufficiency COMPARISON: 07/13/2011 FINDINGS: Significant interval change with respect to the prior examination is not apparent. IMPRESSION: As above.
[2019-07-14] MEDS ORDERED: SODIUM CHLORIDE 0.9% IV SCH (08:15)
[2019-07-14] MEDS ORDERED: POTASSIUM ACETATE IV SCH (08:15)
[2019-07-14] MEDS: HUMULIN R 100 UNITS in Sodium Chloride 0.9% 100 ML IVPB SCH (08:25)
[2019-07-14] MEDS ORDERED: Phenylephrine HCL 10 MG/ML VIAL ONE (11:04)
--- NOTE | 2019-07-17 10:12 | EKG ---
Test Reason : STAT Blood Pressure : / mmHG Vent. Rate : 116 BPM Atrial Rate : 115 BPM P-R Int : 000 ms QRS Dur : 098 ms QT Int : 450 ms P-R-T Axes : 000 -44 079 degrees QTc Int : 625 ms Sinus tachycardia Left axis deviation Prolonged QT Abnormal ECG When compared with ECG of 11-JUL-2019 08:03, (Unconfirmed) Junctional rhythm has replaced Wide QRS tachycardia Confirmed by SIDNEY CHING (2) on 07/17/2019 10:12:01 AM Referred By: [facility] Confirmed By:SIDNEY CHING
== END 2019-07-14 10:13 | disposition expired ==
LOC: SDC 20:04 → CCU 23:18 → SDC 07-14 10:13
PROC: 4A023N6 Measurement of Cardiac Sampling and Pressure, Right Heart, Percutaneous Approach (ICD-10-PCS; principal; 2019-07-14)
DX: I10 Essential (primary) hypertension; I27.20 Pulmonary hypertension, unspecified; E11.9 Type 2 diabetes mellitus without complications; Z87.891 Personal history of nicotine dependence; Z91.010 Allergy to peanuts
CPT/HCPCS: 36416; 47000; 71045; 71250; 74177; 76942; 80053; 81001; 81003; 82150; 82248; 82553; 82805; 82977; 83036; 83605; 83690; 83735; 84100; 85025; 85384; 85610; 85730; 86850; 86900; 86901; 87086; 87205; 88331; 93005; 93010; 94003; 94640; C1769; J0456; J1644; J1815; J1940; J2001; J2150; J2310; J2370; J2543; J2930; J3370; J3430; J3475; J3480; J3490; J7050; J7608; J7611; P9047; Q9967